=== PATIENT | female | born 1980 | race Caucasian/White ===

== ENCOUNTER 2018-07-29 08:13 | Inpatient (IN) | payer SELFPAY ==
[~2018-07-29] VITALS: Ht 157.5 cm; Wt 46.5 kg
[2018-07-29] MEDS ORDERED: KETOROLAC 30 MG/ML VIAL. IV ONE ×2 (08:30→11:00)
[2018-07-29] MEDS ORDERED: CYCLOBENZAPRINE 10 MG TABLET. PO ONE (08:30)
--- NOTE | 2018-07-29 08:37 | PHYS DOC ---
Past Medical History Past Medical History: No Pertinent History Past Surgical History: Other Additional Past Surgical Histo: jaw reconstruction Alcohol Use: None Drug Use: None Adult General Chief Complaint Chief Complaint: CHEST PAIN HPI HPI Patient is a 37 year old female who presents with complaining of chest pain. Patient complaining of sudden onset of left sided chest pain around 6:30 as a constant and sharp pain with radiation to her left upper back associated with shortness of breath. Patient states the pain getting worse with movement and taking deep breaths and rated her pain 10/10 with activity and 8/10 with rest. Patient denies nausea, palpitations, recent injury, history of chest pain. Patient does not have any medical problem and does not take medication daily basis. Patient is currently a smoker and has family history of coronary artery disease. Review of Systems Review of Systems Constitutional: Denies fever or chills [] Eyes: Denies change in visual acuity, redness, or eye pain [] HENT: Denies nasal congestion or sore throat [] Respiratory: Denies cough or shortness of breath [] Cardiovascular: No additional information not addressed in HPI [] GI: Denies abdominal pain, nausea, vomiting, bloody stools or diarrhea [] : Denies dysuria or hematuria [] Musculoskeletal: Denies back pain or joint pain [] Integument: Denies rash or skin lesions [] Neurologic: Denies headache, focal weakness or sensory changes [] Endocrine: Denies polyuria or polydipsia [] All other systems were reviewed and found to be within normal limits, except as documented in this note. Current Medications Current Medications Current Medications Medications (Trade) Dose Ordered Sig/[facility] Start Time Stop Time Status Last Admin Dose Admin Cyclobenzaprine HCl (Flexeril) 10 mg 1X ONCE 07/29/18 08:30 07/29/18 08:46 DC 07/29/18 08:53 10 MG Fentanyl Citrate (Fentanyl 2ml Vial) 50 mcg 1X ONCE 07/29/18 09:00 07/29/18 09:08 DC 07/29/18 09:15 50 MCG Ketorolac Tromethamine (Toradol 30mg Vial) 30 mg 1X ONCE 07/29/18 08:30 07/29/18 08:46 DC 07/29/18 08:55 30 MG Sodium Chloride 1,000 ml @ 1,000 mls/hr 1X ONCE 07/29/18 09:00 07/29/18 09:59 DC 07/29/18 09:00 1,000 MLS/HR Allergies Allergies Allergies Coded Allergies Type Severity Reaction Last Updated Verified No Known Drug Allergies 07/29/18 No Physical Exam Physical Exam Constitutional: Well developed, well nourished, moderate distress, non-toxic appearance. [] HENT: Normocephalic, atraumatic, oropharynx moist. Eyes: PERRLA, EOMI, conjunctiva normal, no discharge. [] Neck: Normal range of motion, no tenderness, supple, no stridor. [] Cardiovascular:Heart rate regular rhythm, no murmur [] Lungs & Thorax: Decrease of air movement in left lung, no wheezing or rhonchi. Abdomen: Bowel sounds normal, soft, no tenderness, no masses, no pulsatile masses. [] Skin: Warm, dry, no erythema, no rash. [] Back: No tenderness, no CVA tenderness. [] Extremities: No tenderness, no cyanosis, no clubbing, ROM intact, no edema. [] Neurologic: Alert and oriented X 3, normal motor function, normal sensory function, no focal deficits noted. [] Psychologic: Affect normal, judgement normal, mood normal. [] Current Patient Data Vital Signs Vital Signs Date Time Temp Pulse Resp B/P (MAP) Pulse Ox O2 Delivery O2 Flow Rate FiO2 07/29/18 08:21 98.2 90 17 117/70 (86) 94 Room Air 98.2 Lab Values Laboratory Tests Test 07/29/18 08:25 White Blood Count 9.7 x10^3/uL (4.0-11.0) Red Blood Count 5.00 x10^6/uL (3.50-5.40) Hemoglobin 15.3 g/dL (12.0-15.5) Hematocrit 45.0 % (36.0-47.0) Mean Corpuscular Volume 90 fL (79-100) Mean Corpuscular Hemoglobin 31 pg (25-35) Mean Corpuscular Hemoglobin Concent 34 g/dL (31-37) Red Cell Distribution Width 13.5 % (11.5-14.5) Platelet Count 268 x10^3/uL (140-400) Neutrophils (%) (Auto) 54 % (31-73) Lymphocytes (%) (Auto) 33 % (24-48) Monocytes (%) (Auto) 9 % (0-9) Eosinophils (%) (Auto) 3 % (0-3) Basophils (%) (Auto) 1 % (0-3) Neutrophils # (Auto) 5.3 x10^3uL (1.8-7.7) Lymphocytes # (Auto) 3.2 x10^3/uL (1.0-4.8) Monocytes # (Auto) 0.9 x10^3/uL (0.0-1.1) Eosinophils # (Auto) 0.3 x10^3/uL (0.0-0.7) Basophils # (Auto) 0.1 x10^3/uL (0.0-0.2) D-Dimer (Ginger) < 0.27 ug/mlFEU Sodium Level 141 mmol/L (136-145) Potassium Level 3.9 mmol/L (3.5-5.1) Chloride Level 105 mmol/L (98-107) Carbon Dioxide Level 26 mmol/L (21-32) Anion Gap 10 (6-14) Blood Urea Nitrogen 12 mg/dL (7-20) Creatinine 0.7 mg/dL (0.6-1.0) Estimated GFR (Cockcroft-Gault) 93.6 BUN/Creatinine Ratio 17 (6-20) Glucose Level 121 mg/dL (70-99) H Calcium Level 9.0 mg/dL (8.5-10.1) Magnesium Level 2.0 mg/dL (1.8-2.4) Total Bilirubin 0.3 mg/dL (0.2-1.0) Aspartate Amino Transferase (AST) 19 U/L (15-37) Alanine Aminotransferase (ALT) 27 U/L (14-59) Alkaline Phosphatase 115 U/L (46-116) Troponin I Quantitative < 0.017 ng/mL (0.000-0.055) PE-Kou-O-Type Natriuretic Peptide 52 pg/mL (0-124) Total Protein 7.6 g/dL (6.4-8.2) Albumin 4.0 g/dL (3.4-5.0) Albumin/Globulin Ratio 1.1 (1.0-1.7) Lipase 186 U/L (73-393) Laboratory Tests 07/29/18 08:25 Laboratory Tests 07/29/18 08:25 EKG EKG EKG interpreted by me. EKG at 0818 showed normal sinus rhythm at rate of 100, left atrial abnormalities, normal WI and QT intervals worse, no acute ST and T- wave abnormalities. Radiology/Procedures Radiology/Procedures [facility] [address] [place] [address] IMAGING REPORT Signed PATIENT: KATERYNA HUA ACCOUNT: [id number] : 1980 LOCATION: ER AGE: 37 SEX: F EXAM STATUS: PRE ER ORD. PHYSICIAN: RICKY CLEVELAND MD REASON: chest pain PROCEDURE: PORTABLE CHEST 1V Chest radiograph 07/29/2018 8:28 AM INDICATION: Chest pain with cough today COMPARISON: None available TECHNIQUE: Portable upright frontal view of the chest is provided. FINDINGS: The cardiomediastinal silhouette is within normal limits. There is a large left-sided pneumothorax with lobar atelectasis. No pleural effusions. There is no pulmonary vascular congestion. IMPRESSION: Large left-sided pneumothorax without significant mediastinal shift. Correlate with patient's symptoms. In a patient of this age, differential considerations would include ruptured bleb as may be seen with asthmatics, idiopathic pneumothorax, or catamenial pneumothorax. FOR INTERNAL CODING PURPOSES Critical result: Findings discussed with RICKY CLEVELAND at 07/29/2018 8:53 AM. RESULT CODE: (C) Electronically signed by: Felix Temple MD (07/29/2018 8:55 AM) [id number] DICTATED and SIGNED BY: FELIX TEMPLE MD DATE: 07/29/18 0855 [facility] [address] [place], [place] [id number] IMAGING REPORT Signed PATIENT: KATERYNA HUA ACCOUNT: [id number] : 1980 LOCATION: [address] [place] [address] AGE: 37 SEX: F EXAM STATUS: ADM IN ORD. PHYSICIAN: RICKY CLEVELAND MD REASON: post-chest tube insertion PROCEDURE: PORTABLE CHEST 1V Chest radiograph 07/29/2018 9:44 AM INDICATION: Post chest tube insertion COMPARISON: Chest radiograph 07/29/2018 TECHNIQUE: Portable upright frontal view of the chest is provided. FINDINGS: The cardiomediastinal silhouette is within normal limits with resolution of minimal mediastinal shift to the right. Left-sided thoracostomy tube is identified with improved aeration of the left lung. There is persistent lobar atelectasis of the left upper lobe. There is a persistent moderate-sized left apical pneumothorax measuring 7.6 cm in pleural separation. No pleural effusions. No pulmonary vascular congestion. IMPRESSION: Interval placement of left-sided thoracostomy tube with partial resolution of left apical pneumothorax. There is a persistent moderate left apical pneumothorax. There is improved mediastinal shift. Electronically signed by: Felix Temple MD (07/29/2018 10:17 AM) [id number] DICTATED and SIGNED BY: FELIX TEMPLE MD DATE: 07/29/18 1017 Course & Med Decision Making Course & Med Decision Making Pertinent Labs and Imaging studies reviewed. (See chart for details) Evaluation of patient in ER showed 37-year-old female patient with complaining of sudden onset of left-sided chest pain and shortness of breath. Patient had large left-sided spontaneous pneumothorax that improved with insertion of [address] Gonzales accepted admission at 0920. Plan to consult manager medical and surgeon on-call. Dragon Disclaimer Dragon Disclaimer This electronic medical record was generated, in whole or in part, using a voice recognition dictation system. Departure Departure Impression: Primary Impression: Spontaneous pneumothorax Additional Impression: Left-sided chest pain Disposition: ADMITTED INPATIENT (at 090 to) Admitting Physician: Shaina Gonzales Condition: IMPROVED Chest Tube Chest Tube Indication: Left Spontaneous pneumothorax Consent: The patient provided consent for this procedure. Procedure: The patient was placed in an appropriate position. Local anesthesia over the insertion site was was given with 1% lidocaine. An 3 mm incision was made[]. A 8 [place] Cook chest tube was placed and connected to one way valve tube with drainage of air. The tube was sutured in place and the site was covered with an occlusive dressing. All connections were banded. Breath sounds after the procedure were improved]. A chest x-ray was obtained to evaluate placement [X-RAY]. The patient tolerated the procedure well. Complications: None. Problem Qualifiers RICKY CLEVELAND MD Jul 29, 2018 08:37
[2018-07-29 08:39] LABS: BASO # 0.1 x10^3/uL (0.0-0.2); BASO % 1 % (0-3); EOS # 0.3 x10^3/uL (0.0-0.7); EOS % 3 % (0-3); HEMOGLOBIN 15.3 g/dL (12.0-15.5); LYMPH # 3.2 x10^3/uL (1.0-4.8); LYMPH % 33 % (24-48); MEAN CORPUSCULAR HEMOGLOBIN 31 pg (25-35); MEAN CORPUSCULAR HGB CONC 34 g/dL (31-37); MEAN CORPUSCULAR VOLUME 90 fL (79-100); MONO # 0.9 x10^3/uL (0.0-1.1); MONO % 9 % (0-9); NEUT # 5.3 x10^3uL (1.8-7.7); NEUT % 54 % (31-73); PLATELET COUNT 268 x10^3/uL (140-400); RED CELL DISTRIBUTION WIDTH 13.5 % (11.5-14.5); WHITE BLOOD COUNT 9.7 x10^3/uL (4.0-11.0)
[2018-07-29 08:51] LABS: CREATININE 0.7 mg/dL (0.6-1.0); GFR 93.6; POTASSIUM 3.9 mmol/L (3.5-5.1)
[2018-07-29 08:57] LABS: ALBUMIN/GLOBULIN RATIO 1.1 (1.0-1.7); TOTAL BILIRUBIN 0.3 mg/dL (0.2-1.0); TOTAL PROTEIN 7.6 g/dL (6.4-8.2)
--- NOTE | 2018-07-29 08:59 | RAD ---
Chest radiograph 07/29/2018 8:28 AM INDICATION: Chest pain with cough today COMPARISON: None available TECHNIQUE: Portable upright frontal view of the chest is provided. FINDINGS: The cardiomediastinal silhouette is within normal limits. There is a large left-sided pneumothorax with lobar atelectasis. No pleural effusions. There is no pulmonary vascular congestion. IMPRESSION: Large left-sided pneumothorax without significant mediastinal shift. Correlate with patient's symptoms. In a patient of this age, differential considerations would include ruptured bleb as may be seen with asthmatics, idiopathic pneumothorax, or catamenial pneumothorax. FOR INTERNAL CODING PURPOSES Critical result: Findings discussed with RICKY CLEVELAND at 07/29/2018 8:53 AM. RESULT CODE: (C) Electronically signed by: Yanique Michael MD (07/29/2018 8:55 AM) [id number]
[2018-07-29] MEDS ORDERED: fentaNYL PF VIAL 100 MCG/2 ML VIAL IV ONE ×3 (09:00→13:15)
[2018-07-29] MEDS ORDERED: IV NORMAL SALINE 1000ML BAG 1,000 ML IV ONE (09:00)
--- NOTE | 2018-07-29 10:20 | RAD ---
Chest radiograph 07/29/2018 9:44 AM INDICATION: Post chest tube insertion COMPARISON: Chest radiograph 07/29/2018 TECHNIQUE: Portable upright frontal view of the chest is provided. FINDINGS: The cardiomediastinal silhouette is within normal limits with resolution of minimal mediastinal shift to the right. Left-sided thoracostomy tube is identified with improved aeration of the left lung. There is persistent lobar atelectasis of the left upper lobe. There is a persistent moderate-sized left apical pneumothorax measuring 7.6 cm in pleural separation. No pleural effusions. No pulmonary vascular congestion. IMPRESSION: Interval placement of left-sided thoracostomy tube with partial resolution of left apical pneumothorax. There is a persistent moderate left apical pneumothorax. There is improved mediastinal shift. Electronically signed by: Yanique Michael MD (07/29/2018 10:17 AM) [id number]
--- NOTE | 2018-07-29 10:40 | PDOC2 ---
SANYA VERAS BINDING CUTTER 07/29/18 1040: CONSULT Date of Consult Date of Consult DATE: 07/29/18 TIME: 10:35 Reason for Consult Reason for Consult: spontaneous pneumothorax Referring Physician Referring Physician: ER Identification/Chief Complaint Chief Complaint chest pain, SOA Source Source: Chart review, Patient History of Present Illness Reason for Visit: Acute onset chest pain, trouble breathing. The pain worsened, she was unable to take any deep breaths. She denies any injury or trauma. Patient seen in ER, has improved since chest tube placement Past Medical History Past Medical History no pertinent hx Past Surgical History Past Surgical History: Other (jaw) Family History Family History: Other (noncontributory to current illness ) Social History <1 pack per day ALCOHOL: occassional Drugs: None Lives: Alone Current Problem List Problem List Problems Medical Problems: (1) Left-sided chest pain Status: Acute (2) Spontaneous pneumothorax Status: Acute Current Medications Current Medications Current Medications Ketorolac Tromethamine (Toradol 30mg Vial) 30 mg 1X ONCE IV Last administered on 07/29/18at 08:55; Start 07/29/18 at 08:30; Stop 07/29/18 at 08:46; Status DC Cyclobenzaprine HCl (Flexeril) 10 mg 1X ONCE PO Last administered on 07/29/18at 08:53; Start 07/29/18 at 08:30; Stop 07/29/18 at 08:46; Status DC Fentanyl Citrate (Fentanyl 2ml Vial) 50 mcg 1X ONCE IV Last administered on 07/29/18at 09:15; Start 07/29/18 at 09:00; Stop 07/29/18 at 09:08; Status DC Sodium Chloride 1,000 ml @ 1,000 mls/hr 1X ONCE IV Last administered on at 09:00; Start 07/29/18 at 09:00; Stop 07/29/18 at 09:59; Status DC Fentanyl Citrate (Fentanyl 2ml Vial) 50 mcg 1X ONCE IV Last administered on 07/29/18at 10:14; Start 07/29/18 at 10:00; Stop 07/29/18 at 10:06; Status DC Allergies Allergies: Coded Allergies: No Known Drug Allergies (Unverified , 07/29/18) ROS General: No: Chills, Other (fevers) PSYCHOLOGICAL ROS: No: Anxiety, Depression Eyes: No Blurry vision, No Double vision HEENT: No: Heacaches, Sore Throat Hematological and Lymphatic: No: Bleeding Problems, Blood Clots Respiratory: YES: Other (see hpi) Cardiovascular: yes Chest Pain; No Palpitations Gastrointestinal: No Nausea, No Vomiting Genitourinary: No Dysuria, No Hematuria Musculoskeletal: No Joint Pain, No Muscle Pain Neurological: No Confusion, No Impaired Coord/balance Skin: No Pruritus, No Rash Physical Exam General: Alert, Oriented X3, Cooperative, No acute distress HEENT: PERRLA, Mucous membr. moist/pink Lungs: Other (CT in place to left chest) Abdomen: Normal bowel sounds, Soft, No tenderness Extremities: No clubbing, No cyanosis Skin: No rashes, No breakdown Neuro: Normal gait, Normal speech Psych/Mental Status: Mental status NL, Mood NL MUSCULOSKELETAL: No deformity, No swelling Vitals VITALS Vital Signs Date Time Temp Pulse Resp B/P (MAP) Pulse Ox O2 Delivery O2 Flow Rate FiO2 07/29/18 10:21 71 12 123/81 (95) 100 Nasal Cannula 2.0 07/29/18 08:21 98.2 98.2 Labs Labs Laboratory Tests Test 07/29/18 08:25 White Blood Count 9.7 x10^3/uL (4.0-11.0) Red Blood Count 5.00 x10^6/uL (3.50-5.40) Hemoglobin 15.3 g/dL (12.0-15.5) Hematocrit 45.0 % (36.0-47.0) Mean Corpuscular Volume 90 fL (79-100) Mean Corpuscular Hemoglobin 31 pg (25-35) Mean Corpuscular Hemoglobin Concent 34 g/dL (31-37) Red Cell Distribution Width 13.5 % (11.5-14.5) Platelet Count 268 x10^3/uL (140-400) Neutrophils (%) (Auto) 54 % (31-73) Lymphocytes (%) (Auto) 33 % (24-48) Monocytes (%) (Auto) 9 % (0-9) Eosinophils (%) (Auto) 3 % (0-3) Basophils (%) (Auto) 1 % (0-3) Neutrophils # (Auto) 5.3 x10^3uL (1.8-7.7) Lymphocytes # (Auto) 3.2 x10^3/uL (1.0-4.8) Monocytes # (Auto) 0.9 x10^3/uL (0.0-1.1) Eosinophils # (Auto) 0.3 x10^3/uL (0.0-0.7) Basophils # (Auto) 0.1 x10^3/uL (0.0-0.2) D-Dimer (Ginger) < 0.27 ug/mlFEU Sodium Level 141 mmol/L (136-145) Potassium Level 3.9 mmol/L (3.5-5.1) Chloride Level 105 mmol/L (98-107) Carbon Dioxide Level 26 mmol/L (21-32) Anion Gap 10 (6-14) Blood Urea Nitrogen 12 mg/dL (7-20) Creatinine 0.7 mg/dL (0.6-1.0) Estimated GFR (Cockcroft-Gault) 93.6 BUN/Creatinine Ratio 17 (6-20) Glucose Level 121 mg/dL (70-99) Calcium Level 9.0 mg/dL (8.5-10.1) Magnesium Level 2.0 mg/dL (1.8-2.4) Total Bilirubin 0.3 mg/dL (0.2-1.0) Aspartate Amino Transf (AST/SGOT) 19 U/L (15-37) Alanine Aminotransferase (ALT/SGPT) 27 U/L (14-59) Alkaline Phosphatase 115 U/L (46-116) Troponin I Quantitative < 0.017 ng/mL (0.000-0.055) NO-Hbf-K-Type Natriuretic Peptide 52 pg/mL (0-124) Total Protein 7.6 g/dL (6.4-8.2) Albumin 4.0 g/dL (3.4-5.0) Albumin/Globulin Ratio 1.1 (1.0-1.7) Lipase 186 U/L (73-393) Laboratory Tests Test 07/29/18 08:25 White Blood Count 9.7 x10^3/uL (4.0-11.0) Red Blood Count 5.00 x10^6/uL (3.50-5.40) Hemoglobin 15.3 g/dL (12.0-15.5) Hematocrit 45.0 % (36.0-47.0) Mean Corpuscular Volume 90 fL (79-100) Mean Corpuscular Hemoglobin 31 pg (25-35) Mean Corpuscular Hemoglobin Concent 34 g/dL (31-37) Red Cell Distribution Width 13.5 % (11.5-14.5) Platelet Count 268 x10^3/uL (140-400) Neutrophils (%) (Auto) 54 % (31-73) Lymphocytes (%) (Auto) 33 % (24-48) Monocytes (%) (Auto) 9 % (0-9) Eosinophils (%) (Auto) 3 % (0-3) Basophils (%) (Auto) 1 % (0-3) Neutrophils # (Auto) 5.3 x10^3uL (1.8-7.7) Lymphocytes # (Auto) 3.2 x10^3/uL (1.0-4.8) Monocytes # (Auto) 0.9 x10^3/uL (0.0-1.1) Eosinophils # (Auto) 0.3 x10^3/uL (0.0-0.7) Basophils # (Auto) 0.1 x10^3/uL (0.0-0.2) D-Dimer (Ginger) < 0.27 ug/mlFEU Sodium Level 141 mmol/L (136-145) Potassium Level 3.9 mmol/L (3.5-5.1) Chloride Level 105 mmol/L (98-107) Carbon Dioxide Level 26 mmol/L (21-32) Anion Gap 10 (6-14) Blood Urea Nitrogen 12 mg/dL (7-20) Creatinine 0.7 mg/dL (0.6-1.0) Estimated GFR (Cockcroft-Gault) 93.6 BUN/Creatinine Ratio 17 (6-20) Glucose Level 121 mg/dL (70-99) Calcium Level 9.0 mg/dL (8.5-10.1) Magnesium Level 2.0 mg/dL (1.8-2.4) Total Bilirubin 0.3 mg/dL (0.2-1.0) Aspartate Amino Transf (AST/SGOT) 19 U/L (15-37) Alanine Aminotransferase (ALT/SGPT) 27 U/L (14-59) Alkaline Phosphatase 115 U/L (46-116) Troponin I Quantitative < 0.017 ng/mL (0.000-0.055) DF-Bdx-F-Type Natriuretic Peptide 52 pg/mL (0-124) Total Protein 7.6 g/dL (6.4-8.2) Albumin 4.0 g/dL (3.4-5.0) Albumin/Globulin Ratio 1.1 (1.0-1.7) Lipase 186 U/L (73-393) Assessment/Plan Assessment/Plan Spontaneous pneumothorax CT in place Pulm consult no surgical plans GUILLERMINA GARAY MD 07/29/18 1721: CONSULT Assessment/Plan Assessment/Plan went by to see pt she was in the bathroom chart reviewed no general surgical needs will sign off please call if needed Thanks SANYA VERAS BINDING CUTTER Jul 29, 2018 10:40 GUILLERMINA GARAY MD Jul 29, 2018 17:21
[2018-07-29 10:45] VITALS: BP 112/69
--- NOTE | 2018-07-29 11:08 | EKG ---
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
--- NOTE | 2018-07-29 11:08 | PDOC1 ---
History and Physical Date of Admission Date of Admission DATE: 07/29/18 TIME: 11:03 Identification/Chief Complaint Chief Complaint left sided CP Source Source: Caregiver, Chart review, Patient History of Present Illness History of Present Illness Today, acute onset left-sided chest pain, pleuritic. NO diaphoresis or pre syncopal sxs. Smoker half a pack a day. No home meds to reconcile, not known COPD,. previously known healthy. No PCP. Spontaneous pneumothorax on chest x- ray got a chest tube at ER. Admitted henceforth Past Medical History Cardiovascular: No pertinent hx Pulmonary: No pertinent hx GI: No pertinent hx Heme/Onc: No pertinent hx Hepatobiliary: No pertinent hx Psych: No pertinent hx Rheumatologic: No pertinent hx Infectious disease: No pertinent hx ENT: No pertinent hx Past Surgical History Past Surgical History: Other (jaw) Family History Family History: Other (noncontributory to current illness ) Social History Smoke: <1 pack per day ALCOHOL: occassional Drugs: None Current Problem List Problem List Problems Medical Problems: (1) Left-sided chest pain Status: Acute (2) Spontaneous pneumothorax Status: Acute Current Medications Current Medications Current Medications Ketorolac Tromethamine (Toradol 30mg Vial) 30 mg 1X ONCE IV Last administered on 07/29/18at 08:55; Start 07/29/18 at 08:30; Stop 07/29/18 at 08:46; Status DC Cyclobenzaprine HCl (Flexeril) 10 mg 1X ONCE PO Last administered on 07/29/18at 08:53; Start 07/29/18 at 08:30; Stop 07/29/18 at 08:46; Status DC Fentanyl Citrate (Fentanyl 2ml Vial) 50 mcg 1X ONCE IV Last administered on 07/29/18at 09:15; Start 07/29/18 at 09:00; Stop 07/29/18 at 09:08; Status DC Sodium Chloride 1,000 ml @ 1,000 mls/hr 1X ONCE IV Last administered on at 09:00; Start 07/29/18 at 09:00; Stop 07/29/18 at 09:59; Status DC Fentanyl Citrate (Fentanyl 2ml Vial) 50 mcg 1X ONCE IV Last administered on 07/29/18at 10:14; Start 07/29/18 at 10:00; Stop 07/29/18 at 10:06; Status DC Ketorolac Tromethamine (Toradol 30mg Vial) 30 mg 1X ONCE IV ; Start 07/29/18 at 11:00; Stop 07/29/18 at 11:01; Status UNV Ketorolac Tromethamine (Toradol 15mg Vial) 15 mg PRN Q6HRS PRN IV PAIN; Start 07/29/18 at 11:00; Stop 08/03/18 at 10:59; Status UNV Oxycodone/ Acetaminophen (Percocet 5/325) 1 tab PRN Q4HRS PRN PO PAIN; Start at 11:00; Status UNV Nicotine (Nicoderm Cq 21mg) 1 patch PRN DAILY PRN TD SMOKING CESSATION; Start 07/29/18 at 11:00; Status UNV Morphine Sulfate (Morphine Sulfate) 2 mg PRN Q2HR PRN IV PAIN; Start 07/29/18 at 11:00; Status UNV Allergies Allergies: Coded Allergies: No Known Drug Allergies (Unverified , 07/29/18) ROS Review of System left Sided pleuritic chest pain otherwise the rest of ROS 14 point negative Physical Exam General: Alert, Oriented X3, Cooperative, No acute distress HEENT: Atraumatic, PERRLA Lungs: Normal air movement, Other (equal air entry, tympanitic to percussion on the left side, symmetrical chest expansion) Heart: S1S2, RRR, no thrills, no rubs, no gallops, murmurs Cardiovascular: S1, S2 Abdomen: Normal bowel sounds, Soft, No tenderness, No hepatosplenomegaly, No masses Rectal Exam: not examined PELVIC: Nml ext genitalia Extremities: No clubbing, No cyanosis, No edema, Normal pulses, No tenderness/ swelling Skin: No rashes, No breakdown, No significant lesion Neuro: Normal gait, Normal speech, Strength at 5/5 X4 ext, Normal tone, Sensation intact, Cranial nerves 3-12 NL, Reflexes 2+ Psych/Mental Status: Mental status NL, Mood NL Vitals Vitals Vital Signs Date Time Temp Pulse Resp B/P (MAP) Pulse Ox O2 Delivery O2 Flow Rate FiO2 07/29/18 10:21 71 12 123/81 (95) 100 Nasal Cannula 2.0 07/29/18 08:21 98.2 98.2 Labs Labs Laboratory Tests Test 07/29/18 08:25 White Blood Count 9.7 x10^3/uL (4.0-11.0) Red Blood Count 5.00 x10^6/uL (3.50-5.40) Hemoglobin 15.3 g/dL (12.0-15.5) Hematocrit 45.0 % (36.0-47.0) Mean Corpuscular Volume 90 fL (79-100) Mean Corpuscular Hemoglobin 31 pg (25-35) Mean Corpuscular Hemoglobin Concent 34 g/dL (31-37) Red Cell Distribution Width 13.5 % (11.5-14.5) Platelet Count 268 x10^3/uL (140-400) Neutrophils (%) (Auto) 54 % (31-73) Lymphocytes (%) (Auto) 33 % (24-48) Monocytes (%) (Auto) 9 % (0-9) Eosinophils (%) (Auto) 3 % (0-3) Basophils (%) (Auto) 1 % (0-3) Neutrophils # (Auto) 5.3 x10^3uL (1.8-7.7) Lymphocytes # (Auto) 3.2 x10^3/uL (1.0-4.8) Monocytes # (Auto) 0.9 x10^3/uL (0.0-1.1) Eosinophils # (Auto) 0.3 x10^3/uL (0.0-0.7) Basophils # (Auto) 0.1 x10^3/uL (0.0-0.2) D-Dimer (Ginger) < 0.27 ug/mlFEU Sodium Level 141 mmol/L (136-145) Potassium Level 3.9 mmol/L (3.5-5.1) Chloride Level 105 mmol/L (98-107) Carbon Dioxide Level 26 mmol/L (21-32) Anion Gap 10 (6-14) Blood Urea Nitrogen 12 mg/dL (7-20) Creatinine 0.7 mg/dL (0.6-1.0) Estimated GFR (Cockcroft-Gault) 93.6 BUN/Creatinine Ratio 17 (6-20) Glucose Level 121 mg/dL (70-99) Calcium Level 9.0 mg/dL (8.5-10.1) Magnesium Level 2.0 mg/dL (1.8-2.4) Total Bilirubin 0.3 mg/dL (0.2-1.0) Aspartate Amino Transf (AST/SGOT) 19 U/L (15-37) Alanine Aminotransferase (ALT/SGPT) 27 U/L (14-59) Alkaline Phosphatase 115 U/L (46-116) Troponin I Quantitative < 0.017 ng/mL (0.000-0.055) LW-Eaf-A-Type Natriuretic Peptide 52 pg/mL (0-124) Total Protein 7.6 g/dL (6.4-8.2) Albumin 4.0 g/dL (3.4-5.0) Albumin/Globulin Ratio 1.1 (1.0-1.7) Lipase 186 U/L (73-393) Laboratory Tests Test 07/29/18 08:25 White Blood Count 9.7 x10^3/uL (4.0-11.0) Red Blood Count 5.00 x10^6/uL (3.50-5.40) Hemoglobin 15.3 g/dL (12.0-15.5) Hematocrit 45.0 % (36.0-47.0) Mean Corpuscular Volume 90 fL (79-100) Mean Corpuscular Hemoglobin 31 pg (25-35) Mean Corpuscular Hemoglobin Concent 34 g/dL (31-37) Red Cell Distribution Width 13.5 % (11.5-14.5) Platelet Count 268 x10^3/uL (140-400) Neutrophils (%) (Auto) 54 % (31-73) Lymphocytes (%) (Auto) 33 % (24-48) Monocytes (%) (Auto) 9 % (0-9) Eosinophils (%) (Auto) 3 % (0-3) Basophils (%) (Auto) 1 % (0-3) Neutrophils # (Auto) 5.3 x10^3uL (1.8-7.7) Lymphocytes # (Auto) 3.2 x10^3/uL (1.0-4.8) Monocytes # (Auto) 0.9 x10^3/uL (0.0-1.1) Eosinophils # (Auto) 0.3 x10^3/uL (0.0-0.7) Basophils # (Auto) 0.1 x10^3/uL (0.0-0.2) D-Dimer (Ginger) < 0.27 ug/mlFEU Sodium Level 141 mmol/L (136-145) Potassium Level 3.9 mmol/L (3.5-5.1) Chloride Level 105 mmol/L (98-107) Carbon Dioxide Level 26 mmol/L (21-32) Anion Gap 10 (6-14) Blood Urea Nitrogen 12 mg/dL (7-20) Creatinine 0.7 mg/dL (0.6-1.0) Estimated GFR (Cockcroft-Gault) 93.6 BUN/Creatinine Ratio 17 (6-20) Glucose Level 121 mg/dL (70-99) Calcium Level 9.0 mg/dL (8.5-10.1) Magnesium Level 2.0 mg/dL (1.8-2.4) Total Bilirubin 0.3 mg/dL (0.2-1.0) Aspartate Amino Transf (AST/SGOT) 19 U/L (15-37) Alanine Aminotransferase (ALT/SGPT) 27 U/L (14-59) Alkaline Phosphatase 115 U/L (46-116) Troponin I Quantitative < 0.017 ng/mL (0.000-0.055) YP-Shn-U-Type Natriuretic Peptide 52 pg/mL (0-124) Total Protein 7.6 g/dL (6.4-8.2) Albumin 4.0 g/dL (3.4-5.0) Albumin/Globulin Ratio 1.1 (1.0-1.7) Lipase 186 U/L (73-393) VTE Prophylaxis Ordered VTE Prophylaxis Devices: Yes VTE Pharmacological Prophylaxi: Yes Assessment/Plan Assessment/Plan left apical pneumothorax with mediastinal shift-improved with chest tube Spont Pneumovax Smoker, half pack a day Plan: pain control Pulmonary consulted chest X-ray again tomorrow No home reconciled Regular diet okay Brenden patch Counselled on smoking < 30 mins 1:1 Discussed with RN at bedside DANNY BARRY MD Jul 29, 2018 11:08
[2018-07-29] MEDS ORDERED: LABETALOL 20 MG/4 ML DISP.SYRIN. IVP PRN (11:15)
[2018-07-29] MEDS: oxyCODONE/APAP 5/325 1 TAB TABLET PO PRN ×2 (11:29→20:47)
[2018-07-29] MEDS: MORPHINE SULFATE 2 MG/ML VIAL. IV PRN (11:29)
--- NOTE | 2018-07-29 11:58 | RAD ---
Single view of the chest. 07/29/2018 11:32 AM Indication: PNEUMOTHORAX Comparison: Chest x-ray, earlier today Findings: There is a persistent moderate to large left pneumothorax. Small caliber thoracostomy tube remains in place. No evidence of effusion is seen. Diffuse interstitial coarsening appears to be present. Heart size is normal. IMPRESSION: Small caliber left thoracostomy tube in place similar persistent moderate to large left pneumothorax Electronically signed by: Doni Rivas MD (07/29/2018 11:55 AM) [id number]
--- NOTE | 2018-07-29 12:10 | CONS ---
DATE OF CONSULTATION: 07/29/2018 ATTENDING PHYSICIAN: Dr. Gonzales. REASON FOR CONSULTATION: Spontaneous left pneumothorax. HISTORY OF PRESENT ILLNESS: The patient is a 37-year-old who has been a smoker, half pack per day. She presented to the hospital with sudden onset of left-sided chest pain and some shortness of breath. She was seen in the Emergency Room where a large pneumothorax was seen on the left side. She underwent smaller chest tube placement with Heimlich valve. The chest x-ray shows improved in left lung expansion, but it was still showing 30% pneumothorax. The patient states this is the first time ever that she had the pneumothorax. She does not have any history of substance abuse. She was not doing any exertion. I have been asked to see her for further evaluation. PAST MEDICAL HISTORY: Significant for history of smoking. No other pertinent history. PAST SURGICAL HISTORY: None. REVIEW OF SYSTEMS: As discussed in my history of present illness, otherwise noncontributory. SOCIAL HISTORY: Smoker, less than 1 pack per day. MEDICATIONS: Reviewed as listed in the MRAD. PHYSICAL EXAMINATION: VITAL SIGNS: Reviewed. Stable. Pulse ox 100% on 2 liters. NECK: Supple. LUNGS: Diminished breath sounds left lung. CARDIOVASCULAR: Regular rate. ABDOMEN: Soft, nontender. EXTREMITIES: With no pitting edema. LABORATORY DATA: Reviewed. Sodium 141, potassium 3.9. White cell count 9.7, hemoglobin 15.3. D-dimer less than 0.27. IMPRESSION: 1. Spontaneous left-sided pneumothorax in a patient who was a smoker and that is the likely risk factor. One should rule out alpha-1 antitrypsin deficiency as an outpatient. The lung has expanded, but still 30-35% pneumothorax still present. 3. History of tobaccoism. RECOMMENDATIONS: 1. Would consult IR to exchange current tiny chest tube to a 12-Haitian chest tube and we will attached to Pleur-Evac. 2. Follow daily chest x-rays. 3. May do CT chest to assess for any blebs. 4. Outpatient alpha 1 antitrypsin level. Not available in-house. 5. P.r.n. bronchodilators. 6. Pain control. 7. Discussed with RN. ALESIA HERNANDEZ MD DR: VITOR/eboni JOB#: [id number] / [id number]
[2018-07-29] MEDS ORDERED: MIDAZOLAM HCL/PF 2 MG/2 ML VIAL. ONE (12:36)
[2018-07-29] MEDS ORDERED: FLUMAZENIL 0.5 MG/5 ML VIAL. IV ONE (12:37)
[2018-07-29] MEDS ORDERED: NALOXONE 0.4 MG/ML VIAL. ONE (12:37)
[2018-07-29] MEDS ORDERED: fentaNYL PF VIAL 100 MCG/2 ML VIAL ONE (12:37)
[2018-07-29] MEDS ORDERED: LIDOCAINE WITH 8.4% SOD BICARB 3 ML DISP.SYRIN. ONE (12:39)
--- NOTE | 2018-07-29 12:41 | NUR ---
SS following for discharge planning. SS reviewed pt chart. Pt is from home and is currently requiring oxygen. No discharge needs noted at this time. SS will continue to follow for pending discharge needs.
[2018-07-29 13:11] VITALS: BP 122/73
[2018-07-29 13:14] VITALS: BP 115/77
[2018-07-29] MEDS ORDERED: LIDOCAINE WITH 8.4% SOD BICARB 3 ML DISP.SYRIN. IJ ONE (13:30)
[2018-07-29 15:26] VITALS: BP 100/65
--- NOTE | 2018-07-29 15:59 | RAD ---
Single view of the chest. 07/29/2018 3:13 PM Indication: CHEST TUBE Comparison: Chest radiograph, earlier today Findings: New left thoracostomy tube in place. Significant reduction, but persistent small left apical pneumothorax. Diffuse interstitial changes appear to be present. Right lung is clear. Heart size is normal. Bony thorax is intact. IMPRESSION: New left thoracostomy tube with decreased size of left pneumothorax. Small persistent apical pneumothorax noted. Electronically signed by: Doni Rivas MD (07/29/2018 3:56 PM) [id number]
[2018-07-29] MEDS ORDERED: IBUP-1027 PO (19:29)
[2018-07-29 19:40] VITALS: BP 93/53
[2018-07-29 23:00] VITALS: BP 99/53
[2018-07-29] MEDS: KETOROLAC 15 MG/ML VIAL. IV PRN (23:06)
[2018-07-29] MEDS: NICOTINE 21MG PATCH. TD PRN (23:53)
[2018-07-30] VITALS (7 sets, daily range): BP systolic 84–121; BP diastolic 45–73
[2018-07-30] MEDS: oxyCODONE/APAP 5/325 1 TAB TABLET PO PRN ×4 (02:33→20:06)
[2018-07-30] MEDS: KETOROLAC 15 MG/ML VIAL. IV PRN ×3 (05:22→22:35)
--- NOTE | 2018-07-30 08:20 | RAD ---
Chest radiograph 07/30/2018 9:00 AM INDICATION: Pneumothorax COMPARISON: July 29, 2018 TECHNIQUE: Portable upright frontal view of the chest is provided. FINDINGS: The cardiomediastinal silhouette is within normal limits. Thoracostomy tube is identified in the left upper lung. There is minimal residual left apical pneumothorax measuring 10 mm in pleural separation. There are no pleural effusions. There is no pulmonary vascular congestion. The lungs are clear. No significant osseous abnormality is identified. IMPRESSION: Left upper lung thoracostomy tube is in place, repositioning. There is a persistent tiny left apical pneumothorax measuring 10 mm in pleural separation, improved from prior examination. Electronically signed by: Yanique Michael MD (07/30/2018 8:17 AM) [id number]
--- NOTE | 2018-07-30 08:31 | PDOC ---
PULMONARY PROGRESS NOTES Vitals Vital Signs Date Time Temp Pulse Resp B/P (MAP) Pulse Ox O2 Delivery O2 Flow Rate FiO2 07/30/18 07:38 Room Air 07/30/18 07:00 97.9 74 18 84/45 (58) 99 97.9 07/29/18 20:47 2.0 Cardiovascular: S1, S2 Labs Laboratory Tests Test 07/29/18 08:25 White Blood Count 9.7 x10^3/uL (4.0-11.0) Red Blood Count 5.00 x10^6/uL (3.50-5.40) Hemoglobin 15.3 g/dL (12.0-15.5) Hematocrit 45.0 % (36.0-47.0) Mean Corpuscular Volume 90 fL (79-100) Mean Corpuscular Hemoglobin 31 pg (25-35) Mean Corpuscular Hemoglobin Concent 34 g/dL (31-37) Red Cell Distribution Width 13.5 % (11.5-14.5) Platelet Count 268 x10^3/uL (140-400) Neutrophils (%) (Auto) 54 % (31-73) Lymphocytes (%) (Auto) 33 % (24-48) Monocytes (%) (Auto) 9 % (0-9) Eosinophils (%) (Auto) 3 % (0-3) Basophils (%) (Auto) 1 % (0-3) Neutrophils # (Auto) 5.3 x10^3uL (1.8-7.7) Lymphocytes # (Auto) 3.2 x10^3/uL (1.0-4.8) Monocytes # (Auto) 0.9 x10^3/uL (0.0-1.1) Eosinophils # (Auto) 0.3 x10^3/uL (0.0-0.7) Basophils # (Auto) 0.1 x10^3/uL (0.0-0.2) D-Dimer (Ginger) < 0.27 ug/mlFEU Sodium Level 141 mmol/L (136-145) Potassium Level 3.9 mmol/L (3.5-5.1) Chloride Level 105 mmol/L (98-107) Carbon Dioxide Level 26 mmol/L (21-32) Anion Gap 10 (6-14) Blood Urea Nitrogen 12 mg/dL (7-20) Creatinine 0.7 mg/dL (0.6-1.0) Estimated GFR (Cockcroft-Gault) 93.6 BUN/Creatinine Ratio 17 (6-20) Glucose Level 121 mg/dL (70-99) Calcium Level 9.0 mg/dL (8.5-10.1) Magnesium Level 2.0 mg/dL (1.8-2.4) Total Bilirubin 0.3 mg/dL (0.2-1.0) Aspartate Amino Transf (AST/SGOT) 19 U/L (15-37) Alanine Aminotransferase (ALT/SGPT) 27 U/L (14-59) Alkaline Phosphatase 115 U/L (46-116) Troponin I Quantitative < 0.017 ng/mL (0.000-0.055) RF-Nyi-B-Type Natriuretic Peptide 52 pg/mL (0-124) Total Protein 7.6 g/dL (6.4-8.2) Albumin 4.0 g/dL (3.4-5.0) Albumin/Globulin Ratio 1.1 (1.0-1.7) Lipase 186 U/L (73-393) Medications Active Scripts Medications Dose Route/Sig Max Daily Dose Days Date Category Ibuprofen 400 Mg Tablet 400 Mg PO PRN Q6HRS PRN 07/29/18 Reported KYRA COTTRELL MD Jul 30, 2018 08:31
[2018-07-30] MEDS: MORPHINE SULFATE 2 MG/ML VIAL. IV PRN (08:42)
--- NOTE | 2018-07-30 12:07 | PDOC ---
PROGRESS NOTES Chief Complaint Chief Complaint Spontaneous pneumothorax History of tobacco abuse Counseling done Chest discomfort as a consequence of pneumothorax Plan: Continue current care chest tube Pain management Further recommendations based on clinical course History of Present Illness History of Present Illness Patient complaining of discomfort over the affected side. Patient denies cough no sputum production no fever or chills were reported. Plan of care is going detail and all of her concerns were addressed to the best of my abilities Vitals Vitals Vital Signs Date Time Temp Pulse Resp B/P (MAP) Pulse Ox O2 Delivery O2 Flow Rate FiO2 07/30/18 11:07 20 07/30/18 10:48 97.8 78 91/57 (68) 96 Room Air 97.8 07/29/18 20:47 2.0 Physical Exam General: Alert, Oriented X3, Cooperative, No acute distress Abdomen: Normal bowel sounds, Soft, No tenderness, No hepatosplenomegaly, No masses Extremities: No clubbing, No cyanosis, No edema, Normal pulses, No tenderness/ swelling Skin: No rashes, No breakdown, No significant lesion Assessment and Plan Assessmemt and Plan Problems Medical Problems: (1) Left-sided chest pain Status: Acute (2) Spontaneous pneumothorax Status: Acute Comment Review of Relevant I have reviewed the following items monik (where applicable) has been applied. Labs Laboratory Tests Test 07/29/18 08:25 White Blood Count 9.7 x10^3/uL (4.0-11.0) Red Blood Count 5.00 x10^6/uL (3.50-5.40) Hemoglobin 15.3 g/dL (12.0-15.5) Hematocrit 45.0 % (36.0-47.0) Mean Corpuscular Volume 90 fL (79-100) Mean Corpuscular Hemoglobin 31 pg (25-35) Mean Corpuscular Hemoglobin Concent 34 g/dL (31-37) Red Cell Distribution Width 13.5 % (11.5-14.5) Platelet Count 268 x10^3/uL (140-400) Neutrophils (%) (Auto) 54 % (31-73) Lymphocytes (%) (Auto) 33 % (24-48) Monocytes (%) (Auto) 9 % (0-9) Eosinophils (%) (Auto) 3 % (0-3) Basophils (%) (Auto) 1 % (0-3) Neutrophils # (Auto) 5.3 x10^3uL (1.8-7.7) Lymphocytes # (Auto) 3.2 x10^3/uL (1.0-4.8) Monocytes # (Auto) 0.9 x10^3/uL (0.0-1.1) Eosinophils # (Auto) 0.3 x10^3/uL (0.0-0.7) Basophils # (Auto) 0.1 x10^3/uL (0.0-0.2) D-Dimer (Ginger) < 0.27 ug/mlFEU Sodium Level 141 mmol/L (136-145) Potassium Level 3.9 mmol/L (3.5-5.1) Chloride Level 105 mmol/L (98-107) Carbon Dioxide Level 26 mmol/L (21-32) Anion Gap 10 (6-14) Blood Urea Nitrogen 12 mg/dL (7-20) Creatinine 0.7 mg/dL (0.6-1.0) Estimated GFR (Cockcroft-Gault) 93.6 BUN/Creatinine Ratio 17 (6-20) Glucose Level 121 mg/dL (70-99) Calcium Level 9.0 mg/dL (8.5-10.1) Magnesium Level 2.0 mg/dL (1.8-2.4) Total Bilirubin 0.3 mg/dL (0.2-1.0) Aspartate Amino Transf (AST/SGOT) 19 U/L (15-37) Alanine Aminotransferase (ALT/SGPT) 27 U/L (14-59) Alkaline Phosphatase 115 U/L (46-116) Troponin I Quantitative < 0.017 ng/mL (0.000-0.055) NC-Lsy-U-Type Natriuretic Peptide 52 pg/mL (0-124) Total Protein 7.6 g/dL (6.4-8.2) Albumin 4.0 g/dL (3.4-5.0) Albumin/Globulin Ratio 1.1 (1.0-1.7) Lipase 186 U/L (73-393) Medications Current Medications Ketorolac Tromethamine (Toradol 30mg Vial) 30 mg 1X ONCE IV Last administered on 07/29/18at 08:55; Start 07/29/18 at 08:30; Stop 07/29/18 at 08:46; Status DC Cyclobenzaprine HCl (Flexeril) 10 mg 1X ONCE PO Last administered on 07/29/18 08:53; Start 07/29/18 at 08:30; Stop 07/29/18 at 08:46; Status DC Fentanyl Citrate (Fentanyl 2ml Vial) 50 mcg 1X ONCE IV Last administered on 09:15; Start 07/29/18 at 09:00; Stop 07/29/18 at 09:08; Status DC Sodium Chloride 1,000 ml @ 1,000 mls/hr 1X ONCE IV Last administered on at 09:00; Start 07/29/18 at 09:00; Stop 07/29/18 at 09:59; Status DC Fentanyl Citrate (Fentanyl 2ml Vial) 50 mcg 1X ONCE IV Last administered on 07/29/18at 10:14; Start 07/29/18 at 10:00; Stop 07/29/18 at 10:06; Status DC Ketorolac Tromethamine (Toradol 30mg Vial) 30 mg 1X ONCE IV ; Start 07/29/18 at 11:00; Stop 07/29/18 at 11:03; Status DC Ketorolac Tromethamine (Toradol 15mg Vial) 15 mg PRN Q6HRS PRN IV MILD PAIN Last administered on 07/30/18 05:22; Start 07/29/18 at 11:00; Stop 08/03/18 at 10 :59 Oxycodone/ Acetaminophen (Percocet 5/325) 1 tab PRN Q4HRS PRN PO PAIN Last administered on 07/30/18 11:07; Start 07/29/18 at 11:00 Nicotine (Nicoderm Cq 21mg) 1 patch PRN DAILY PRN TD SMOKING CESSATION Last administered on 07/29/18at 23:53; Start 07/29/18 at 11:00 Morphine Sulfate (Morphine Sulfate) 2 mg PRN Q2HR PRN IV MODERATE - SEVERE PAIN Last administered on 07/30/18at 08:42; Start 07/29/18 at 11:00 Labetalol HCl (Normodyne Iv Push) 10 mg PRN Q2HR PRN IVP HYPERTENSION, SEE COMMENTS; Start 07/29/18 at 11:15 Midazolam HCl (Versed) 2 mg STK-MED ONCE .ROUTE ; Start 07/29/18 at 12:36; Stop 07/29/18 at 12:37; Status DC Fentanyl Citrate (Fentanyl 2ml Vial) 100 mcg STK-MED ONCE .ROUTE ; Start at 12:37; Stop 07/29/18 at 12:38; Status DC Flumazenil (Romazicon) 0.5 mg STK-MED ONCE IV ; Start 07/29/18 at 12:37; Stop 07/29/18 at 12:38; Status DC Naloxone HCl (Narcan) 0.4 mg STK-MED ONCE .ROUTE ; Start 07/29/18 at 12:37; Stop 07/29/18 at 12:38; Status DC Lidocaine/Sodium Bicarbonate (Buffered Lidocaine 1%) 3 ml STK-MED ONCE .ROUTE ; Start 07/29/18 at 12:39; Stop 07/29/18 at 12:40; Status DC Fentanyl Citrate (Fentanyl 2ml Vial) 50 mcg 1X ONCE IV Last administered on 07/29/18at 13:15; Start 07/29/18 at 13:15; Stop 07/29/18 at 13:24; Status DC Lidocaine/Sodium Bicarbonate (Buffered Lidocaine 1%) 9 ml 1X ONCE IJ Last administered on 07/29/18at 13:19; Start 07/29/18 at 13:30; Stop 07/29/18 at 13:31; Status DC Active Scripts Active Reported Ibuprofen 400 Mg Tablet 400 Mg PO PRN Q6HRS PRN Vitals/I & O Vital Sign - Last 24 Hours 07/29/18 07/29/18 07/29/18 07/29/18 13:11 13:14 14:00 15:26 Temp 97.9 97.9 Pulse 76 75 70 Resp 16 12 18 B/P (MAP) 122/73 (89) 115/77 (90) 100/65 (77) Pulse Ox 99 99 98 O2 Delivery Nasal Cannula Nasal Cannula Room Air Room Air O2 Flow Rate 2.0 2.0 07/29/18 07/29/18 07/29/18 07/29/18 19:40 20:00 20:47 23:00 Temp 98.5 98.2 98.5 98.2 Pulse 74 76 Resp 18 18 18 B/P (MAP) 93/53 (66) 99/53 (68) Pulse Ox 98 98 98 O2 Delivery Room Air Room Air Room Air Room Air O2 Flow Rate 2.0 07/30/18 07/30/18 07/30/18 07/30/18 02:33 03:30 03:35 06:43 Temp 97.8 97.8 Pulse 76 Resp 16 18 14 B/P (MAP) 95/52 (66) Pulse Ox 98 98 98 98 O2 Delivery Room Air Room Air Room Air Room Air 07/30/18 07/30/18 07/30/18 07/30/18 07:00 07:38 07:43 08:06 Temp 97.9 97.9 Pulse 74 Resp 18 20 B/P (MAP) 84/45 (58) 95/59 (71) Pulse Ox 99 O2 Delivery Room Air Room Air 07/30/18 07/30/18 07/30/18 07/30/18 08:42 09:12 10:48 11:07 Temp 97.8 97.8 Pulse 78 Resp 20 20 16 20 B/P (MAP) 91/57 (68) Pulse Ox 96 O2 Delivery Room Air Intake and Output 07/29/18 07/29/18 07/30/18 14:59 22:59 06:59 Intake Total 1240 ml 1040 ml 720 ml Output Total 875 ml 675 ml Balance 1240 ml 165 ml 45 ml JONATHAN ZAYAS MD Jul 30, 2018 12:07
--- NOTE | 2018-07-30 13:39 | NUR ---
SS following for discharge planning. SS reviewed pt chart. Pt is self pay. [facility]CF[facility] is following for self pay status. Pt is from home and is currently on room air. No discharge needs noted at this time. SS will continue to follow for pending discharge needs.
--- NOTE | 2018-07-30 17:50 | PDOC ---
PULMONARY PROGRESS NOTES Subjective no soa Vitals Vital Signs Date Time Temp Pulse Resp B/P (MAP) Pulse Ox O2 Delivery O2 Flow Rate FiO2 07/30/18 14:53 97.9 72 18 107/60 (76) 99 Room Air 97.9 07/29/18 20:47 2.0 General: Alert, No acute distress Lungs: Other (decrease bs) Cardiovascular: S1, S2 Abdomen: Soft Neuro Exam: Alert Extremities: No Edema Skin: Warm Labs Laboratory Tests Test 07/29/18 08:25 White Blood Count 9.7 x10^3/uL (4.0-11.0) Red Blood Count 5.00 x10^6/uL (3.50-5.40) Hemoglobin 15.3 g/dL (12.0-15.5) Hematocrit 45.0 % (36.0-47.0) Mean Corpuscular Volume 90 fL (79-100) Mean Corpuscular Hemoglobin 31 pg (25-35) Mean Corpuscular Hemoglobin Concent 34 g/dL (31-37) Red Cell Distribution Width 13.5 % (11.5-14.5) Platelet Count 268 x10^3/uL (140-400) Neutrophils (%) (Auto) 54 % (31-73) Lymphocytes (%) (Auto) 33 % (24-48) Monocytes (%) (Auto) 9 % (0-9) Eosinophils (%) (Auto) 3 % (0-3) Basophils (%) (Auto) 1 % (0-3) Neutrophils # (Auto) 5.3 x10^3uL (1.8-7.7) Lymphocytes # (Auto) 3.2 x10^3/uL (1.0-4.8) Monocytes # (Auto) 0.9 x10^3/uL (0.0-1.1) Eosinophils # (Auto) 0.3 x10^3/uL (0.0-0.7) Basophils # (Auto) 0.1 x10^3/uL (0.0-0.2) D-Dimer (Ginger) < 0.27 ug/mlFEU Sodium Level 141 mmol/L (136-145) Potassium Level 3.9 mmol/L (3.5-5.1) Chloride Level 105 mmol/L (98-107) Carbon Dioxide Level 26 mmol/L (21-32) Anion Gap 10 (6-14) Blood Urea Nitrogen 12 mg/dL (7-20) Creatinine 0.7 mg/dL (0.6-1.0) Estimated GFR (Cockcroft-Gault) 93.6 BUN/Creatinine Ratio 17 (6-20) Glucose Level 121 mg/dL (70-99) Calcium Level 9.0 mg/dL (8.5-10.1) Magnesium Level 2.0 mg/dL (1.8-2.4) Total Bilirubin 0.3 mg/dL (0.2-1.0) Aspartate Amino Transf (AST/SGOT) 19 U/L (15-37) Alanine Aminotransferase (ALT/SGPT) 27 U/L (14-59) Alkaline Phosphatase 115 U/L (46-116) Troponin I Quantitative < 0.017 ng/mL (0.000-0.055) HW-Dga-U-Type Natriuretic Peptide 52 pg/mL (0-124) Total Protein 7.6 g/dL (6.4-8.2) Albumin 4.0 g/dL (3.4-5.0) Albumin/Globulin Ratio 1.1 (1.0-1.7) Lipase 186 U/L (73-393) Medications Active Scripts Medications Dose Route/Sig Max Daily Dose Days Date Category Ibuprofen 400 Mg Tablet 400 Mg PO PRN Q6HRS PRN 07/29/18 Reported Impression . 1. Spontaneous left-sided pneumothorax in a patient who was a smoker and that is the likely risk factor. One should rule out alpha-1 antitrypsin deficiency as an outpatient. The lung has expanded, but still 30-35% pneumothorax still present. 3. History of tobaccoism. Plan . 1. Continue chest tube to suction 2. Follow daily chest x-rays. residual PTX 10% seen today 3. May do CT chest to assess for any blebs once lung expanded 4. Outpatient alpha 1 antitrypsin level. Not available in-house. 5. P.r.n. bronchodilators. 6. Pain control. 7. Discussed with ALESIA DE LUNA MD Jul 30, 2018 17:50
[2018-07-30] MEDS: NICOTINE 21MG PATCH. TD PRN (22:35)
--- NOTE | 2018-07-30 23:14 | NUR ---
Chest tube noted to have sanguinous fluid in the clear portion of the small diameter pigtail which is not draining toward collection box. All settings on collection box are appropriate: -20 mmHg, orange eileen expanded to the arrow on the right, no tidaling noted and 7cc drainage total collected over last two shifts. No leakage, no kinking noted. New vacuum regulator at wall installed, pigtail "milked" and attempts to strip drainage by hand using finger strength unsuccessful. liz Jimenez RN in ICU consulted via phone and CXR and pulmonology notes reviewed. CXR showed minimal 10mm plueral separation in L apex. Patient not experiencing soa, is in sinus rhythm, is able to take moderately deep breaths when prompted, has a fairly strong non-productive cough. Her pain has been similar in severity, location, description to pain on previous two shifts. No further action taken, will continue to monitor.
[2018-07-31] MEDS: oxyCODONE/APAP 5/325 1 TAB TABLET PO PRN ×3 (00:30→20:00)
[2018-07-31 03:10] VITALS: BP 107/61
[2018-07-31] MEDS: KETOROLAC 15 MG/ML VIAL. IV PRN ×3 (05:25→23:33)
[2018-07-31 07:00] VITALS: BP 111/71
--- NOTE | 2018-07-31 08:13 | RAD ---
Single view of the chest. 07/31/2018 9:00 AM Indication: PNEUMOTHORAX Comparison: Chest radiograph, yesterday Findings: Left thoracostomy tube again noted. Continued improvement in left pneumothorax is seen with only trace residual pneumothorax likely present. There is diffuse interstitial coarsening, stable, likely chronic. Lungs are otherwise clear. Heart size is normal. Bony thorax is unchanged. IMPRESSION: Left thoracostomy tube remains in place with continued improvement in left apical pneumothorax. Trace left apical pneumothorax remains. Electronically signed by: Doni Rivas MD (07/31/2018 8:10 AM) [id number]
--- NOTE | 2018-07-31 09:17 | RAD ---
Left thoracostomy tube placement, CT-guided. July 29, 2018 Indication: Incomplete resolution of pneumothorax Discussion: The risks and benefits of the procedure were discussed the patient. Informed consent was obtained. Timeout procedure was performed. The left chest was prepped and draped using sterile barrier technique. CT imaging demonstrates persistent large left pneumothorax despite small caliber thoracostomy tube. An anterior approach was chosen. 1% lidocaine was administered for local anesthesia. A 5 Trin[place] sheath needle was advanced to the pleural space under intermittent CT guidance. Air was aspirated. A guidewire was advanced into the pleural space over which following dilatation a 10 Trin[place] pigtail drainage catheter was advanced into the pleural space. Position was confirmed with CT. New catheter was secured in place. Sterile dressings were applied. The previously placed left-sided thoracostomy tube was removed. Sterile dressings were applied. Impression: 1. CT-guided placement, left thoracostomy tube 2. Removal pre-existing left thoracostomy tube PQRS Compliance Statement: One or more of the following individualized dose reduction techniques were utilized for this examination: 1. Automated exposure control 2. Adjustment of the mA and/or kV according to patient size 3. Use of iterative reconstruction technique
--- NOTE | 2018-07-31 10:09 | PDOC ---
PULMONARY PROGRESS NOTES Subjective no soa Vitals Vital Signs Date Time Temp Pulse Resp B/P (MAP) Pulse Ox O2 Delivery O2 Flow Rate FiO2 07/31/18 09:37 20 07/31/18 08:00 Room Air 07/31/18 07:00 98.1 74 111/71 (84) 99 98.1 07/30/18 20:06 2.0 General: Alert, No acute distress Lungs: Other (decrease bs) Cardiovascular: S1, S2 Abdomen: Soft Neuro Exam: Alert Extremities: No Edema Skin: Warm Medications Active Scripts Medications Dose Route/Sig Max Daily Dose Days Date Category Ibuprofen 400 Mg Tablet 400 Mg PO PRN Q6HRS PRN 07/29/18 Reported Comments CXR tiny left apical PTX Impression . 1. Spontaneous left-sided pneumothorax in a patient who was a smoker and that is the likely risk factor. One should rule out alpha-1 antitrypsin deficiency as an outpatient. The lung has expanded, 3. History of tobaccoism. Plan . 1. Continue chest tube to suction 2. Follow daily chest x-rays. residual PTX 5% seen today 3. May do CT chest in am to assess for any blebs 4. Outpatient alpha 1 antitrypsin level. Not available in-house. 5. P.r.n. bronchodilators. 6. Pain control. 7. Discussed with RN/ PT 8. If the lung expands completely in am, consider clamping ct 24 hrs ALESIA HERNANDEZ MD Jul 31, 2018 10:09
--- NOTE | 2018-07-31 10:45 | PDOC ---
PROGRESS NOTES Chief Complaint Chief Complaint Spontaneous pneumothorax History of tobacco abuse Counseling done Chest discomfort as a consequence of pneumothorax Plan: Continue current care chest tube CT in ama Pain management Further recommendations based on clinical course History of Present Illness History of Present Illness Patient complaining of discomfort over the affected side. Patient denies cough no sputum production no fever or chills were reported. Plan of care is going detail and all of her concerns were addressed to the best of my abilities Vitals Vitals Vital Signs Date Time Temp Pulse Resp B/P (MAP) Pulse Ox O2 Delivery O2 Flow Rate FiO2 07/31/18 09:37 20 07/31/18 08:00 Room Air 07/31/18 07:00 98.1 74 111/71 (84) 99 98.1 07/30/18 20:06 2.0 Physical Exam General: Alert, Oriented X3, Cooperative, No acute distress Lungs: Other (decrease bs) Abdomen: Normal bowel sounds, Soft, No tenderness, No hepatosplenomegaly, No masses Extremities: No clubbing, No cyanosis, No edema, Normal pulses, No tenderness/ swelling Skin: No rashes, No breakdown, No significant lesion Review of Systems Review of Systems Pertinent as per history of present illness otherwise 14 point review of system is negative Assessment and Plan Assessmemt and Plan Problems Medical Problems: (1) Left-sided chest pain Status: Acute (2) Spontaneous pneumothorax Status: Acute Comment Review of Relevant I have reviewed the following items monik (where applicable) has been applied. Medications Current Medications Ketorolac Tromethamine (Toradol 30mg Vial) 30 mg 1X ONCE IV Last administered on 07/29/18 08:55; Start 07/29/18 at 08:30; Stop 07/29/18 at 08:46; Status DC Cyclobenzaprine HCl (Flexeril) 10 mg 1X ONCE PO Last administered on 07/29/18 08:53; Start 07/29/18 at 08:30; Stop 07/29/18 at 08:46; Status DC Fentanyl Citrate (Fentanyl 2ml Vial) 50 mcg 1X ONCE IV Last administered on 09:15; Start 07/29/18 at 09:00; Stop 07/29/18 at 09:08; Status DC Sodium Chloride 1,000 ml @ 1,000 mls/hr 1X ONCE IV Last administered on 4/8/ 19at 09:00; Start 07/29/18 at 09:00; Stop 07/29/18 at 09:59; Status DC Fentanyl Citrate (Fentanyl 2ml Vial) 50 mcg 1X ONCE IV Last administered on 07/29/18at 10:14; Start 07/29/18 at 10:00; Stop 07/29/18 at 10:06; Status DC Ketorolac Tromethamine (Toradol 30mg Vial) 30 mg 1X ONCE IV ; Start 07/29/18 at 11:00; Stop 07/29/18 at 11:03; Status DC Ketorolac Tromethamine (Toradol 15mg Vial) 15 mg PRN Q6HRS PRN IV MILD PAIN Last administered on 07/31/18at 05:25; Start 07/29/18 at 11:00; Stop 08/03/18 at 10:59 Oxycodone/ Acetaminophen (Percocet 5/325) 1 tab PRN Q4HRS PRN PO PAIN Last administered on 07/31/18at 08:37; Start 07/29/18 at 11:00 Nicotine (Nicoderm Cq 21mg) 1 patch PRN DAILY PRN TD SMOKING CESSATION Last administered on 07/30/18at 22:35; Start 07/29/18 at 11:00 Morphine Sulfate (Morphine Sulfate) 2 mg PRN Q2HR PRN IV MODERATE - SEVERE PAIN Last administered on 07/30/18at 08:42; Start 07/29/18 at 11:00 Labetalol HCl (Normodyne Iv Push) 10 mg PRN Q2HR PRN IVP HYPERTENSION, SEE COMMENTS; Start 07/29/18 at 11:15 Midazolam HCl (Versed) 2 mg STK-MED ONCE .ROUTE ; Start 07/29/18 at 12:36; Stop 07/29/18 at 12:37; Status DC Fentanyl Citrate (Fentanyl 2ml Vial) 100 mcg STK-MED ONCE .ROUTE ; Start at 12:37; Stop 07/29/18 at 12:38; Status DC Flumazenil (Romazicon) 0.5 mg STK-MED ONCE IV ; Start 07/29/18 at 12:37; Stop 07/29/18 at 12:38; Status DC Naloxone HCl (Narcan) 0.4 mg STK-MED ONCE .ROUTE ; Start 07/29/18 at 12:37; Stop 07/29/18 at 12:38; Status DC Lidocaine/Sodium Bicarbonate (Buffered Lidocaine 1%) 3 ml STK-MED ONCE .ROUTE ; Start 07/29/18 at 12:39; Stop 07/29/18 at 12:40; Status DC Fentanyl Citrate (Fentanyl 2ml Vial) 50 mcg 1X ONCE IV Last administered on 07/29/18at 13:15; Start 07/29/18 at 13:15; Stop 07/29/18 at 13:24; Status DC Lidocaine/Sodium Bicarbonate (Buffered Lidocaine 1%) 9 ml 1X ONCE IJ Last administered on 07/29/18at 13:19; Start 07/29/18 at 13:30; Stop 07/29/18 at 13:31; Status DC Active Scripts Active Reported Ibuprofen 400 Mg Tablet 400 Mg PO PRN Q6HRS PRN Vitals/I & O Vital Sign - Last 24 Hours 07/30/18 07/30/18 07/30/18 07/30/18 10:48 11:07 14:53 19:20 Temp 97.8 97.9 98.3 97.8 97.9 98.3 Pulse 78 72 74 Resp 16 20 18 18 B/P (MAP) 91/57 (68) 107/60 (76) 121/73 (89) Pulse Ox 96 99 99 O2 Delivery Room Air Room Air Room Air 07/30/18 07/30/18 07/30/18 07/31/18 20:00 20:06 23:00 00:30 Temp 98.2 98.2 Pulse 66 Resp 14 18 14 B/P (MAP) 114/67 (83) Pulse Ox 99 98 98 O2 Delivery Room Air Room Air Room Air Room Air O2 Flow Rate 2.0 07/31/18 07/31/18 07/31/18 07/31/18 01:35 03:10 07:00 08:00 Temp 97.8 98.1 97.8 98.1 Pulse 65 74 Resp 18 18 B/P (MAP) 107/61 (76) 111/71 (84) Pulse Ox 98 97 99 O2 Delivery Room Air Room Air Room Air Room Air 07/31/18 07/31/18 08:37 09:37 Resp 20 20 Intake and Output 07/30/18 07/30/18 07/31/18 15:00 23:00 07:00 Intake Total 360 ml 240 ml 700 ml Output Total 425 ml 1100 ml Balance -65 ml -860 ml 700 ml JONATHAN ZAYAS MD Jul 31, 2018 10:45
[2018-07-31 11:00] VITALS: BP 98/64
[2018-07-31 14:38] VITALS: BP 106/62
[2018-07-31 19:31] VITALS: BP 112/62
[2018-07-31 23:21] VITALS: BP 104/61
[2018-07-31] MEDS: NICOTINE 21MG PATCH. TD PRN (23:32)
[2018-08-01 03:26] VITALS: BP 95/60
[2018-08-01] MEDS: oxyCODONE/APAP 5/325 1 TAB TABLET PO PRN ×3 (03:37→20:19)
[2018-08-01 07:00] VITALS: BP 109/65
--- NOTE | 2018-08-01 08:09 | RAD ---
Single view of the chest. 08/01/2018 9:00 AM Indication: PNEUMOTHORAX Comparison: Chest radiograph, yesterday Findings: Small left apical pneumothorax has mildly increased in size. Multifocal mild areas of discoid atelectasis are noted. Left thoracostomy tube remains in place. Diffuse interstitial coarsening is stable. Right lung otherwise clear. Heart size is normal. Bony thorax is unchanged. IMPRESSION: 1.Mild increase in small left apical pneumothorax. Left chest tube remains in place. 2. Mild multifocal left-sided discoid atelectasis Electronically signed by: Doni Rivas MD (08/01/2018 8:06 AM) [id number]
[2018-08-01] MEDS: KETOROLAC 15 MG/ML VIAL. IV PRN ×2 (09:42→15:36)
--- NOTE | 2018-08-01 10:12 | PDOC ---
PULMONARY PROGRESS NOTES Subjective no so, no cough Vitals Vital Signs Date Time Temp Pulse Resp B/P (MAP) Pulse Ox O2 Delivery O2 Flow Rate FiO2 08/01/18 08:00 Room Air 08/01/18 07:00 98.1 70 16 109/65 (80) 96 98.1 08/01/18 04:37 2.0 ROS: No Nausea General: Alert, No acute distress HEENT: Other (nc at perrl ) Lungs: Other (decrease bs, l ct) Cardiovascular: S1, S2 Abdomen: Soft, Non-tender Neuro Exam: Alert, Oriented Extremities: No Edema Skin: Warm Medications Active Scripts Medications Dose Route/Sig Max Daily Dose Days Date Category Ibuprofen 400 Mg Tablet 400 Mg PO PRN Q6HRS PRN 07/29/18 Reported Comments reviewed cxr 1.Mild increase in small left apical pneumothorax. Left chest tube remains in place. 2. Mild multifocal left-sided discoid atelectasis Impression . 1. Spontaneous left-sided pneumothorax in a patient who was a smoker and that is the likely risk factor. One should rule out alpha-1 antitrypsin deficiency as an outpatient. The lung has expanded, 3. History of tobaccoism. Plan . 1. Continue chest tube, increase suction to -40, ptx slightly larger 2. Follow daily chest x-rays. residual PTX 5% seen today 3. May do CT chest in am to assess for any blebs 4. Outpatient alpha 1 antitrypsin level. Not available in-house. 5. P.r.n. bronchodilators. 6. Pain control. 7. Discussed with RN/ PT ZHANG NEFF MD Aug 01, 2018 10:12
[2018-08-01 11:00] VITALS: BP 115/65
[2018-08-01 15:00] VITALS: BP 125/70
--- NOTE | 2018-08-01 15:19 | RAD ---
Examination: CT chest without contrast HISTORY: History of pneumothorax, apical bleb COMPARISON: CT from 07/29/2018 TECHNIQUE: Axial CT images of the chest were performed without contrast. Coronal and sagittal reformats are performed. Exposure: One or more of the following individualized dose reduction techniques were utilized for this examination: 1. Automated exposure control 2. Adjustment of the mA and/or kV according to patient size 3. Use of iterative reconstruction technique FINDINGS: Examination limited due to lack of IV contrast. The heart size grossly appears unremarkable The caliber of the aorta grossly appears unremarkable. Moderate-sized left pneumothorax is again identified are decreased in size compared to prior exam. A left pigtail chest tube is identified in the left apical pleural space. Mild left lung base airspace opacities likely atelectasis or infiltrate. Noncontrasted liver, spleen, adrenals grossly appears unremarkable Small sclerotic density identified in the vertebral body T9 measuring 9 mm probably a bone island. IMPRESSION: 1. Moderate left pneumothorax identified mild decreased in size compared to prior exam with left-sided chest tube in place. 2. Mild left lung base airspace opacities likely atelectasis or infiltrate. Electronically signed by: Richard Almonte MD (08/01/2018 3:16 PM) [id number]
[2018-08-01] MEDS ORDERED: POLYETHYLENE GLYCOL 3350 17 GM PACKET. PO ONE (17:30)
[2018-08-01] MEDS ORDERED: SENNOSIDES 8.6 MG TABLET PO ONE (17:30)
--- NOTE | 2018-08-01 19:38 | PDOC ---
PROGRESS NOTES Chief Complaint Chief Complaint Spontaneous pneumothorax History of tobacco abuse Counseling done Chest discomfort as a consequence of pneumothorax Plan: Continue current care chest tube CT in ama Pain management Further recommendations based on clinical course History of Present Illness History of Present Illness Patient complaining of discomfort over the affected side with sensation of wheezing underneath her rib cage. Patient denies cough no sputum production no fever or chills were reported. Plan of care discussed, patient hoping to be discharged soon. Vitals Vitals Vital Signs Date Time Temp Pulse Resp B/P (MAP) Pulse Ox O2 Delivery O2 Flow Rate FiO2 08/01/18 15:00 98.4 71 16 125/70 (88) 100 Room Air 98.4 08/01/18 04:37 2.0 Physical Exam General: Alert, Oriented X3, Cooperative, No acute distress Lungs: Other (decrease bs, l ct) Abdomen: Normal bowel sounds, Soft, No tenderness, No hepatosplenomegaly, No masses Extremities: No clubbing, No cyanosis, No edema, Normal pulses, No tenderness/ swelling Skin: No rashes, No breakdown, No significant lesion Assessment and Plan Assessmemt and Plan Problems Medical Problems: (1) Left-sided chest pain Status: Acute (2) Spontaneous pneumothorax Status: Acute Comment Review of Relevant I have reviewed the following items monik (where applicable) has been applied. Medications Current Medications Ketorolac Tromethamine (Toradol 30mg Vial) 30 mg 1X ONCE IV Last administered on 07/29/18 08:55; Start 07/29/18 at 08:30; Stop 07/29/18 at 08:46; Status DC Cyclobenzaprine HCl (Flexeril) 10 mg 1X ONCE PO Last administered on 07/29/18 08:53; Start 07/29/18 at 08:30; Stop 07/29/18 at 08:46; Status DC Fentanyl Citrate (Fentanyl 2ml Vial) 50 mcg 1X ONCE IV Last administered on 09:15; Start 07/29/18 at 09:00; Stop 07/29/18 at 09:08; Status DC Sodium Chloride 1,000 ml @ 1,000 mls/hr 1X ONCE IV Last administered on 09:00; Start 07/29/18 at 09:00; Stop 07/29/18 at 09:59; Status DC Fentanyl Citrate (Fentanyl 2ml Vial) 50 mcg 1X ONCE IV Last administered on 07/29/18at 10:14; Start 07/29/18 at 10:00; Stop 07/29/18 at 10:06; Status DC Ketorolac Tromethamine (Toradol 30mg Vial) 30 mg 1X ONCE IV ; Start 07/29/18 at 11:00; Stop 07/29/18 at 11:03; Status DC Ketorolac Tromethamine (Toradol 15mg Vial) 15 mg PRN Q6HRS PRN IV MILD PAIN Last administered on 08/01/18at 15:36; Start 07/29/18 at 11:00; Stop 08/03/18 at 10:59 Oxycodone/ Acetaminophen (Percocet 5/325) 1 tab PRN Q4HRS PRN PO PAIN Last administered on 08/01/18at 12:02; Start 07/29/18 at 11:00 Nicotine (Nicoderm Cq 21mg) 1 patch PRN DAILY PRN TD SMOKING CESSATION Last administered on 07/31/18at 23:32; Start 07/29/18 at 11:00 Morphine Sulfate (Morphine Sulfate) 2 mg PRN Q2HR PRN IV MODERATE - SEVERE PAIN Last administered on 07/30/18at 08:42; Start 07/29/18 at 11:00 Labetalol HCl (Normodyne Iv Push) 10 mg PRN Q2HR PRN IVP HYPERTENSION, SEE COMMENTS; Start 07/29/18 at 11:15 Midazolam HCl (Versed) 2 mg STK-MED ONCE .ROUTE ; Start 07/29/18 at 12:36; Stop 07/29/18 at 12:37; Status DC Fentanyl Citrate (Fentanyl 2ml Vial) 100 mcg STK-MED ONCE .ROUTE ; Start at 12:37; Stop 07/29/18 at 12:38; Status DC Flumazenil (Romazicon) 0.5 mg STK-MED ONCE IV ; Start 07/29/18 at 12:37; Stop 07/29/18 at 12:38; Status DC Naloxone HCl (Narcan) 0.4 mg STK-MED ONCE .ROUTE ; Start 07/29/18 at 12:37; Stop 07/29/18 at 12:38; Status DC Lidocaine/Sodium Bicarbonate (Buffered Lidocaine 1%) 3 ml STK-MED ONCE .ROUTE ; Start 07/29/18 at 12:39; Stop 07/29/18 at 12:40; Status DC Fentanyl Citrate (Fentanyl 2ml Vial) 50 mcg 1X ONCE IV Last administered on 07/29/18at 13:15; Start 07/29/18 at 13:15; Stop 07/29/18 at 13:24; Status DC Lidocaine/Sodium Bicarbonate (Buffered Lidocaine 1%) 9 ml 1X ONCE IJ Last administered on 07/29/18at 13:19; Start 07/29/18 at 13:30; Stop 07/29/18 at 13:31; Status DC Sennosides (Senna) 17.2 mg 1X ONCE PO Last administered on 08/01/18at 17:20; Start 08/01/18 at 17:30; Stop 08/01/18 at 17:31; Status DC Polyethylene Glycol (miraLAX PACKET) 17 gm 1X ONCE PO Last administered on 03/11at 17:20; Start 08/01/18 at 17:30; Stop 08/01/18 at 17:31; Status DC Active Scripts Active Reported Ibuprofen 400 Mg Tablet 400 Mg PO PRN Q6HRS PRN Vitals/I & O Vital Sign - Last 24 Hours 07/31/18 07/31/18 07/31/18 08/01/18 20:00 20:00 23:21 03:26 Temp 98.7 98.1 98.7 98.1 Pulse 66 70 Resp 18 16 16 B/P (MAP) 104/61 (75) 95/60 (72) Pulse Ox 98 98 97 O2 Delivery Room Air Room Air Room Air Room Air O2 Flow Rate 2.0 2.0 08/01/18 08/01/18 08/01/18 08/01/18 03:37 04:37 07:00 08:00 Temp 98.1 98.1 Pulse 70 Resp 16 18 16 B/P (MAP) 109/65 (80) Pulse Ox 97 96 O2 Delivery Room Air Room Air Room Air O2 Flow Rate 2.0 2.0 08/01/18 08/01/18 08/01/18 08/01/18 11:00 12:02 13:04 15:00 Temp 98.6 98.4 98.6 98.4 Pulse 87 71 Resp 16 16 B/P (MAP) 115/65 (82) 125/70 (88) Pulse Ox 97 97 97 100 O2 Delivery Room Air Room Air Room Air Room Air Intake and Output 07/31/18 07/31/18 08/01/18 15:00 23:00 07:00 Intake Total 360 ml 360 ml 800 ml Output Total 450 ml 425 ml 635 ml Balance -90 ml -65 ml 165 ml Nutrition Consultation Dietary Evaluation: Recommendations by RD: Increase Calorie Intake, Protein supplementation Comments: REC continue w/regular diet, honor food preferences, and provide snacks as requested REC Ensure (vanilla) TID Expected Outcomes/Goals: PO intake to meet >75% est needs Malnutrition Findings: Food and Nutrition Intake (Mod: <75% est energy req 7days Weight Status: Appropriate JONATHAN ZAYAS MD Aug 01, 2018 19:38
[2018-08-01 19:50] VITALS: BP 122/67
[2018-08-01 22:56] VITALS: BP 119/70
[2018-08-02] VITALS (21 sets, daily range): BP systolic 103–123; BP diastolic 58–79
[2018-08-02] MEDS: KETOROLAC 15 MG/ML VIAL. IV PRN ×3 (00:56→20:02)
--- NOTE | 2018-08-02 08:27 | PDOC ---
PROGRESS NOTES Chief Complaint Chief Complaint Spontaneous pneumothorax History of tobacco abuse Counseling done Chest discomfort as a consequence of pneumothorax Plan: Continue current care chest tube CT chest D/w IR for repositioning of CT Pain management Further recommendations based on clinical course History of Present Illness History of Present Illness CXR looks worse today. Has a headache. Patient complaining of discomfort over the affected side with sensation of wheezing underneath her rib cage. Patient denies cough no sputum production no fever or chills were reported. Plan of care discussed, patient hoping to be discharged soon. Vitals Vitals Vital Signs Date Time Temp Pulse Resp B/P (MAP) Pulse Ox O2 Delivery O2 Flow Rate FiO2 08/02/18 07:00 98.0 80 16 118/67 (84) 97 Room Air 98.0 08/01/18 21:19 2.0 Physical Exam General: Alert, Oriented X3, Cooperative, No acute distress Lungs: Other (decrease bs, l ct) Abdomen: Normal bowel sounds, Soft, No tenderness, No hepatosplenomegaly, No masses Extremities: No clubbing, No cyanosis, No edema, Normal pulses, No tenderness/ swelling Skin: No rashes, No breakdown, No significant lesion Assessment and Plan Assessmemt and Plan Problems Medical Problems: (1) Left-sided chest pain Status: Acute (2) Spontaneous pneumothorax Status: Acute Comment Review of Relevant I have reviewed the following items monik (where applicable) has been applied. Medications Current Medications Ketorolac Tromethamine (Toradol 30mg Vial) 30 mg 1X ONCE IV Last administered on 07/29/18 08:55; Start 07/29/18 at 08:30; Stop 07/29/18 at 08:46; Status DC Cyclobenzaprine HCl (Flexeril) 10 mg 1X ONCE PO Last administered on 07/29/18 08:53; Start 07/29/18 at 08:30; Stop 07/29/18 at 08:46; Status DC Fentanyl Citrate (Fentanyl 2ml Vial) 50 mcg 1X ONCE IV Last administered on 09:15; Start 07/29/18 at 09:00; Stop 07/29/18 at 09:08; Status DC Sodium Chloride 1,000 ml @ 1,000 mls/hr 1X ONCE IV Last administered on 09:00; Start 07/29/18 at 09:00; Stop 07/29/18 at 09:59; Status DC Fentanyl Citrate (Fentanyl 2ml Vial) 50 mcg 1X ONCE IV Last administered on 07/29/18at 10:14; Start 07/29/18 at 10:00; Stop 07/29/18 at 10:06; Status DC Ketorolac Tromethamine (Toradol 30mg Vial) 30 mg 1X ONCE IV ; Start 07/29/18 at 11:00; Stop 07/29/18 at 11:03; Status DC Ketorolac Tromethamine (Toradol 15mg Vial) 15 mg PRN Q6HRS PRN IV MILD PAIN Last administered on 08/02/18at 00:56; Start 07/29/18 at 11:00; Stop 08/03/18 at 10:59 Oxycodone/ Acetaminophen (Percocet 5/325) 1 tab PRN Q4HRS PRN PO PAIN Last administered on 08/01/18at 20:19; Start 07/29/18 at 11:00 Nicotine (Nicoderm Cq 21mg) 1 patch PRN DAILY PRN TD SMOKING CESSATION Last administered on 07/31/18at 23:32; Start 07/29/18 at 11:00 Morphine Sulfate (Morphine Sulfate) 2 mg PRN Q2HR PRN IV MODERATE - SEVERE PAIN Last administered on 07/30/18at 08:42; Start 07/29/18 at 11:00 Labetalol HCl (Normodyne Iv Push) 10 mg PRN Q2HR PRN IVP HYPERTENSION, SEE COMMENTS; Start 07/29/18 at 11:15 Midazolam HCl (Versed) 2 mg STK-MED ONCE .ROUTE ; Start 07/29/18 at 12:36; Stop 07/29/18 at 12:37; Status DC Fentanyl Citrate (Fentanyl 2ml Vial) 100 mcg STK-MED ONCE .ROUTE ; Start at 12:37; Stop 07/29/18 at 12:38; Status DC Flumazenil (Romazicon) 0.5 mg STK-MED ONCE IV ; Start 07/29/18 at 12:37; Stop 07/29/18 at 12:38; Status DC Naloxone HCl (Narcan) 0.4 mg STK-MED ONCE .ROUTE ; Start 07/29/18 at 12:37; Stop 07/29/18 at 12:38; Status DC Lidocaine/Sodium Bicarbonate (Buffered Lidocaine 1%) 3 ml STK-MED ONCE .ROUTE ; Start 07/29/18 at 12:39; Stop 07/29/18 at 12:40; Status DC Fentanyl Citrate (Fentanyl 2ml Vial) 50 mcg 1X ONCE IV Last administered on 07/29/18at 13:15; Start 07/29/18 at 13:15; Stop 07/29/18 at 13:24; Status DC Lidocaine/Sodium Bicarbonate (Buffered Lidocaine 1%) 9 ml 1X ONCE IJ Last administered on 07/29/18at 13:19; Start 07/29/18 at 13:30; Stop 07/29/18 at 13:31; Status DC Sennosides (Senna) 17.2 mg 1X ONCE PO Last administered on 08/01/18at 17:20; Start 08/01/18 at 17:30; Stop 08/01/18 at 17:31; Status DC Polyethylene Glycol (miraLAX PACKET) 17 gm 1X ONCE PO Last administered on 03/11at 17:20; Start 08/01/18 at 17:30; Stop 08/01/18 at 17:31; Status DC Active Scripts Active Reported Ibuprofen 400 Mg Tablet 400 Mg PO PRN Q6HRS PRN Vitals/I & O Vital Sign - Last 24 Hours 08/01/18 08/01/18 08/01/18 08/01/18 11:00 12:02 15:00 19:50 Temp 98.6 98.4 98.1 98.6 98.4 98.1 Pulse 87 71 73 Resp 16 16 18 B/P (MAP) 115/65 (82) 125/70 (88) 122/67 (85) Pulse Ox 97 97 100 100 O2 Delivery Room Air Room Air Room Air Room Air 08/01/18 08/01/18 08/01/18 08/01/18 20:00 20:19 21:19 22:56 Temp 98.4 98.4 Pulse 79 Resp 18 16 20 B/P (MAP) 119/70 (86) Pulse Ox 100 97 97 O2 Delivery Room Air Room Air Room Air Room Air O2 Flow Rate 2.0 2.0 2.0 08/02/18 08/02/18 02:23 07:00 Temp 97.4 98.0 97.4 98.0 Pulse 67 80 Resp 18 16 B/P (MAP) 110/64 (79) 118/67 (84) Pulse Ox 99 97 O2 Delivery Room Air Room Air Intake and Output 08/01/18 08/01/18 08/02/18 15:00 23:00 07:00 Intake Total 220 ml 240 ml 240 ml Output Total 300 ml 600 ml Balance 220 ml -60 ml -360 ml Nutrition Consultation Dietary Evaluation: Recommendations by RD: Increase Calorie Intake, Protein supplementation Comments: REC continue w/regular diet, honor food preferences, and provide snacks as requested REC Ensure (vanilla) TID Expected Outcomes/Goals: PO intake to meet >75% est needs Malnutrition Findings: Food and Nutrition Intake (Mod: <75% est energy req 7days Weight Status: Appropriate YEE CHANEL MD Aug 02, 2018 08:27
--- NOTE | 2018-08-02 08:30 | NUR ---
Pt left chest tube with physician orders to be at -40 suction noted to be at -10 suction upon initial assessment. Pt not experiencing any SOA, vital signs are stable. Physician notified and new order given for CXRAY. Chest tube suction changed to -40 per physician order. Slight bubbling upon deep inhalation. Physician notified of this finding as well. Will continue to monitor.
--- NOTE | 2018-08-02 08:34 | PDOC ---
PULMONARY PROGRESS NOTES Subjective no sob, no cough Vitals Vital Signs Date Time Temp Pulse Resp B/P (MAP) Pulse Ox O2 Delivery O2 Flow Rate FiO2 08/02/18 07:00 98.0 80 16 118/67 (84) 97 Room Air 98.0 08/01/18 21:19 2.0 ROS: No Nausea General: Alert, No acute distress HEENT: Other (nc at perrl ) Lungs: Other (decrease bs, l ct) Cardiovascular: S1, S2 Abdomen: Soft, Non-tender Neuro Exam: Alert, Oriented Extremities: No Edema Skin: Warm Medications Active Scripts Medications Dose Route/Sig Max Daily Dose Days Date Category Ibuprofen 400 Mg Tablet 400 Mg PO PRN Q6HRS PRN 07/29/18 Reported Comments reviewed cxr l ptx worse Impression . 1. Spontaneous left-sided pneumothorax in a patient who was a smoker and that is the likely risk factor. One should rule out alpha-1 antitrypsin deficiency as an outpatient. 3. History of tobaccoism. Plan . 1. Continue chest tube, suction to 40, cxrs reviewed, ptx larger, ct persistent ptx. discussed w dr sandhu, he will review and make a decision to reposition or place a new ct 2. Follow daily chest x-rays. 3. ct reviewed 4. Outpatient alpha 1 antitrypsin level. Not available in-house. 5. P.r.n. bronchodilators. 6. Pain control. 7. Discussed with RN/ PT ZHANG NEFF MD Aug 02, 2018 08:34
[2018-08-02] MEDS: NICOTINE 21MG PATCH. TD PRN (08:52)
[2018-08-02] MEDS: ACETAMINOPHEN 325 MG TABLET. PO PRN (11:30)
--- NOTE | 2018-08-02 12:00 | RAD ---
CHEST PA LATERAL 9:55 AM Clinical indications: CHEST TUBE. TO DO ON INSPIRATION COMPARISON: August 02, 2018 performed at 7:05 AM Findings: Again seen is a left apical pneumothorax which has increased in size now measuring 6.2 cm from the left apical edge. It measured 2.8 cm from the left apical edge previously. No new lung infiltrate or pleural effusion is seen. The heart size, pulmonary vasculature, mediastinum and both ivelisse are unremarkable. Scoliosis is seen. The osseous structures appear intact. Impression: Increase in size of left apical pneumothorax. Electronically signed by: Cory Ballesteros MD (08/02/2018 11:57 AM) [place] [id number]
--- NOTE | 2018-08-02 13:32 | RAD ---
EXAM: CHEST 1 VIEW History: Pneumothorax COMPARISON: 08/01/2018 TECHNIQUE: Single portable radiograph of the chest FINDINGS: The cardiac silhouette is unremarkable. Interval mild increase in left apical pneumothorax . Left-sided pigtail chest tube is identified. The costophrenic sulci are clear and well demarcated. IMPRESSION: Interval mild increase in left apical pneumothorax. Electronically signed by: Richard Almonte MD (08/02/2018 1:29 PM) [facility]
[2018-08-02] MEDS ORDERED: LIDOCAINE WITH 8.4% SOD BICARB 3 ML DISP.SYRIN. ONE (14:23)
[2018-08-02] MEDS ORDERED: MIDAZOLAM HCL/PF 2 MG/2 ML VIAL. ONE (14:43)
[2018-08-02] MEDS ORDERED: fentaNYL PF VIAL 100 MCG/2 ML VIAL ONE (14:43)
[2018-08-02] MEDS ORDERED: LIDOCAINE WITH 8.4% SOD BICARB 3 ML DISP.SYRIN. IJ ONE (15:15)
[2018-08-02] MEDS ORDERED: fentaNYL PF VIAL 100 MCG/2 ML VIAL IV ONE (15:15)
[2018-08-02] MEDS ORDERED: MIDAZOLAM HCL/PF 2 MG/2 ML VIAL. IV ONE (15:15)
--- NOTE | 2018-08-02 15:45 | NUR ---
Pt back to unit s/p chest tube replacement. Pt in bed with chest tube to left chest at -20 suction. No complaints of pain or discomfort, VS stable, will continue to monitor per protocol.
--- NOTE | 2018-08-02 16:44 | RAD ---
CT-guided replacement of left thoracostomy tube 08/02/2018 Indication: Nonfunctional catheter Discussion: The risks and benefits of the procedure discussed the patient. Informed consent was obtained. A timeout procedure was performed. CT imaging demonstrates the pacing catheter to be well-positioned however nonfunctional at assessment. Catheter may occluded. The left upper chest was prepped and draped using sterile barrier technique. A guidewire was advanced through the pre-existing catheter into the pleural space. The pre-existing catheter was removed over wire and replaced with a new 12 Japanese catheter. The new catheter was found to aspirate air freely. Sedation was confirmed with CT. The catheter was connected to Pleur-evac device at -20 cm water. The catheter was secured. Sterile dressings were applied. The procedures performed under conscious sedation including continuous cardiopulmonary monitoring via dedicated sedation nurse. [id number] sedation time: 22 minutes Impression: Replacement of left thoracostomy tube as described
[2018-08-02] MEDS: LUBIPROSTONE 8 MCG CAPSULE PO SCH (16:55)
[2018-08-02] MEDS: MORPHINE SULFATE 2 MG/ML VIAL. IV PRN (16:55)
[2018-08-02] MEDS: oxyCODONE/APAP 5/325 1 TAB TABLET PO PRN (22:50)
[2018-08-03] MEDS: MORPHINE SULFATE 2 MG/ML VIAL. IV PRN ×3 (01:09→21:30)
--- NOTE | 2018-08-03 07:53 | PDOC ---
PROGRESS NOTES Chief Complaint Chief Complaint Spontaneous pneumothorax History of tobacco abuse Counseling done Chest discomfort as a consequence of pneumothorax Plan: Continue current care chest tube CT chest D/w IR for repositioning of CT Pain management Further recommendations based on clinical course History of Present Illness History of Present Illness CXR looked worse 08/02/18 - s/p IR replacement of chest tube Patient complaining of discomfort over the affected side with sensation of wheezing underneath her rib cage. Patient denies cough no sputum production no fever or chills were reported. Plan of care discussed, patient hoping to be discharged soon. She does feel better overall today Vitals Vitals Vital Signs Date Time Temp Pulse Resp B/P (MAP) Pulse Ox O2 Delivery O2 Flow Rate FiO2 08/03/18 03:00 63 18 99 Room Air 08/02/18 23:30 98.1 123/78 (93) 98.1 08/02/18 18:08 2.0 Physical Exam General: Alert, Oriented X3, Cooperative, No acute distress Lungs: Other (decrease bs, l ct) Abdomen: Normal bowel sounds, Soft, No tenderness, No hepatosplenomegaly, No masses Extremities: No clubbing, No cyanosis, No edema, Normal pulses, No tenderness/ swelling Skin: No rashes, No breakdown, No significant lesion Assessment and Plan Assessmemt and Plan Problems Medical Problems: (1) Left-sided chest pain Status: Acute (2) Spontaneous pneumothorax Status: Acute Comment Review of Relevant I have reviewed the following items monik (where applicable) has been applied. Medications Current Medications Ketorolac Tromethamine (Toradol 30mg Vial) 30 mg 1X ONCE IV Last administered on 07/29/18 08:55; Start 07/29/18 at 08:30; Stop 07/29/18 at 08:46; Status DC Cyclobenzaprine HCl (Flexeril) 10 mg 1X ONCE PO Last administered on 07/29/18 08:53; Start 07/29/18 at 08:30; Stop 07/29/18 at 08:46; Status DC Fentanyl Citrate (Fentanyl 2ml Vial) 50 mcg 1X ONCE IV Last administered on 09:15; Start 07/29/18 at 09:00; Stop 07/29/18 at 09:08; Status DC Sodium Chloride 1,000 ml @ 1,000 mls/hr 1X ONCE IV Last administered on at 09:00; Start 07/29/18 at 09:00; Stop 07/29/18 at 09:59; Status DC Fentanyl Citrate (Fentanyl 2ml Vial) 50 mcg 1X ONCE IV Last administered on 07/29/18at 10:14; Start 07/29/18 at 10:00; Stop 07/29/18 at 10:06; Status DC Ketorolac Tromethamine (Toradol 30mg Vial) 30 mg 1X ONCE IV ; Start 07/29/18 at 11:00; Stop 07/29/18 at 11:03; Status DC Ketorolac Tromethamine (Toradol 15mg Vial) 15 mg PRN Q6HRS PRN IV MILD PAIN Last administered on 08/02/18at 20:02; Start 07/29/18 at 11:00; Stop 08/03/18 at 10:59 Oxycodone/ Acetaminophen (Percocet 5/325) 1 tab PRN Q4HRS PRN PO PAIN Last administered on 08/02/18at 22:50; Start 07/29/18 at 11:00 Nicotine (Nicoderm Cq 21mg) 1 patch PRN DAILY PRN TD SMOKING CESSATION Last administered on 08/02/18at 08:52; Start 07/29/18 at 11:00 Morphine Sulfate (Morphine Sulfate) 2 mg PRN Q2HR PRN IV MODERATE - SEVERE PAIN Last administered on 08/03/18at 01:09; Start 07/29/18 at 11:00 Labetalol HCl (Normodyne Iv Push) 10 mg PRN Q2HR PRN IVP HYPERTENSION, SEE COMMENTS; Start 07/29/18 at 11:15 Midazolam HCl (Versed) 2 mg STK-MED ONCE .ROUTE ; Start 07/29/18 at 12:36; Stop 07/29/18 at 12:37; Status DC Fentanyl Citrate (Fentanyl 2ml Vial) 100 mcg STK-MED ONCE .ROUTE ; Start at 12:37; Stop 07/29/18 at 12:38; Status DC Flumazenil (Romazicon) 0.5 mg STK-MED ONCE IV ; Start 07/29/18 at 12:37; Stop 07/29/18 at 12:38; Status DC Naloxone HCl (Narcan) 0.4 mg STK-MED ONCE .ROUTE ; Start 07/29/18 at 12:37; Stop 07/29/18 at 12:38; Status DC Lidocaine/Sodium Bicarbonate (Buffered Lidocaine 1%) 3 ml STK-MED ONCE .ROUTE ; Start 07/29/18 at 12:39; Stop 07/29/18 at 12:40; Status DC Fentanyl Citrate (Fentanyl 2ml Vial) 50 mcg 1X ONCE IV Last administered on 07/29/18at 13:15; Start 07/29/18 at 13:15; Stop 07/29/18 at 13:24; Status DC Lidocaine/Sodium Bicarbonate (Buffered Lidocaine 1%) 9 ml 1X ONCE IJ Last administered on 07/29/18at 13:19; Start 07/29/18 at 13:30; Stop 07/29/18 at 13:31; Status DC Sennosides (Senna) 17.2 mg 1X ONCE PO Last administered on 08/01/18at 17:20; Start 08/01/18 at 17:30; Stop 08/01/18 at 17:31; Status DC Polyethylene Glycol (miraLAX PACKET) 17 gm 1X ONCE PO Last administered on 03/11at 17:20; Start 08/01/18 at 17:30; Stop 08/01/18 at 17:31; Status DC Lubiprostone (Amitiza) 8 mcg BIDWMEALS PO Last administered on 08/02/18at 16:55 ; Start 08/02/18 at 17:00 Acetaminophen (Tylenol) 650 mg PRN Q6HRS PRN PO headache Last administered on at 11:30; Start 08/02/18 at 11:00 Lidocaine/Sodium Bicarbonate (Buffered Lidocaine 1%) 3 ml STK-MED ONCE .ROUTE ; Start 08/02/18 at 14:23; Stop 08/02/18 at 14:24; Status DC Midazolam HCl (Versed) 2 mg STK-MED ONCE .ROUTE ; Start 08/02/18 at 14:43; Stop 08/02/18 at 14:44; Status DC Fentanyl Citrate (Fentanyl 2ml Vial) 100 mcg STK-MED ONCE .ROUTE ; Start at 14:43; Stop 08/02/18 at 14:44; Status DC Lidocaine/Sodium Bicarbonate (Buffered Lidocaine 1%) 3 ml 1X ONCE IJ Last administered on 08/02/18at 15:09; Start 08/02/18 at 15:15; Stop 08/02/18 at 15:16 ; Status DC Midazolam HCl (Versed) 2 mg 1X ONCE IV Last administered on 08/02/18at 15:09; Start 08/02/18 at 15:15; Stop 08/02/18 at 15:16; Status DC Fentanyl Citrate (Fentanyl 2ml Vial) 100 mcg 1X ONCE IV Last administered on at 15:09; Start 08/02/18 at 15:15; Stop 08/02/18 at 15:16; Status DC Active Scripts Active Reported Ibuprofen 400 Mg Tablet 400 Mg PO PRN Q6HRS PRN Vitals/I & O Vital Sign - Last 24 Hours 08/02/18 08/02/18 08/02/18 08/02/18 08:00 11:00 14:54 14:59 Temp 98.0 98.0 Pulse 103 82 80 Resp 16 15 18 B/P (MAP) 109/62 (78) Pulse Ox 98 99 97 O2 Delivery Room Air Room Air Nasal Cannula Nasal Cannula O2 Flow Rate 2.0 2.0 2.0 08/02/18 08/02/18 08/02/18 08/02/18 15:04 15:09 15:09 15:14 Pulse 83 78 78 Resp 19 13 20 11 Pulse Ox 99 98 98 98 O2 Delivery Nasal Cannula Nasal Cannula Nasal Cannula Nasal Cannula O2 Flow Rate 2.0 2.0 2.0 2.0 08/02/18 08/02/18 08/02/18 08/02/18 15:45 16:00 16:10 16:15 Pulse 69 73 69 Resp 14 B/P (MAP) 107/67 (80) 103/65 (78) 108/65 (79) Pulse Ox 98 O2 Delivery Room Air O2 Flow Rate 2.0 08/02/18 08/02/18 08/02/18 08/02/18 16:30 16:45 16:55 17:00 Pulse 76 77 79 Resp 15 B/P (MAP) 108/67 (81) 105/67 (80) 110/72 (85) Pulse Ox 98 O2 Delivery Room Air O2 Flow Rate 2.0 08/02/18 08/02/18 08/02/18 08/02/18 17:15 17:30 17:45 18:00 Pulse 83 84 84 76 B/P (MAP) 114/75 (88) 119/78 (92) 117/79 (92) 107/63 (78) 08/02/18 08/02/18 08/02/18 08/02/18 18:08 18:15 19:43 20:00 Temp 98.1 98.1 Pulse 84 80 Resp 17 B/P (MAP) 107/65 (79) 108/67 (81) Pulse Ox 97 O2 Delivery Room Air Room Air O2 Flow Rate 2.0 08/02/18 08/02/18 08/02/18 08/03/18 22:50 23:30 23:50 01:09 Temp 98.1 98.1 Pulse 77 Resp 20 22 20 20 B/P (MAP) 123/78 (93) Pulse Ox 97 100 95 96 O2 Delivery Room Air Room Air Room Air Room Air 08/03/18 08/03/18 01:39 03:00 Pulse 63 Resp 20 18 Pulse Ox 96 99 O2 Delivery Room Air Room Air Intake and Output 08/02/18 08/02/18 08/03/18 15:00 23:00 07:00 Intake Total 220 ml 360 ml 300 ml Output Total 351 ml 325 ml 300 ml Balance -131 ml 35 ml 0 ml Nutrition Consultation Dietary Evaluation: Recommendations by RD: Increase Calorie Intake, Protein supplementation Comments: REC continue w/regular diet, honor food preferences, and provide snacks as requested REC Ensure (vanilla) TID Expected Outcomes/Goals: PO intake to meet >75% est needs Malnutrition Findings: Food and Nutrition Intake (Mod: <75% est energy req 7days Weight Status: Appropriate YEE CHANEL MD Aug 03, 2018 07:53
[2018-08-03 07:55] VITALS: BP 104/58
[2018-08-03] MEDS: oxyCODONE/APAP 5/325 1 TAB TABLET PO PRN ×4 (08:02→22:40)
[2018-08-03] MEDS: LUBIPROSTONE 8 MCG CAPSULE PO SCH ×2 (08:02→16:45)
[2018-08-03] MEDS: KETOROLAC 15 MG/ML VIAL. IV PRN (08:04)
--- NOTE | 2018-08-03 08:51 | PDOC ---
PULMONARY PROGRESS NOTES Subjective no sob, no cough, has discomfort in ct site. Vitals Vital Signs Date Time Temp Pulse Resp B/P (MAP) Pulse Ox O2 Delivery O2 Flow Rate FiO2 08/03/18 08:02 18 99 Room Air 08/03/18 07:55 98.2 73 104/58 (73) 98.2 08/02/18 18:08 2.0 ROS: No Nausea, No Abdominal Pain General: Alert, No acute distress HEENT: Other (nc at perrl ) Lungs: Other (decrease bs, l ct) Cardiovascular: S1, S2 Abdomen: Soft, Non-tender Neuro Exam: Alert, Oriented Extremities: No Edema Skin: Warm Medications Active Scripts Medications Dose Route/Sig Max Daily Dose Days Date Category Ibuprofen 400 Mg Tablet 400 Mg PO PRN Q6HRS PRN 07/29/18 Reported Comments reviewed cxr l ptx smaller Impression . 1. Spontaneous left-sided pneumothorax in a patient who was a smoker and that is the likely risk factor. 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 History of tobaccoism. Plan . 1. ct was changed over the wire on 08/02 now functioning, Continue chest tube, suction to -30, cxr reviewed, ptx smaller, has leak 2. Follow daily chest x-rays. 3. ct reviewed 4. Outpatient alpha 1 antitrypsin level. Not available in-house. 5. P.r.n. bronchodilators. 6. Pain control. 7. Discussed with RN/ PT ZHANG NEFF MD Aug 03, 2018 08:51
--- NOTE | 2018-08-03 08:59 | RAD ---
AP chest. HISTORY: Pneumothorax AP view was taken of the chest. There is a small left apical pneumothorax with a mild improvement. There is a 6 mildly different position to the chest tube on today's study. No new infiltrates are noted. Heart is normal in size. IMPRESSION: 1. Persistent left apical pneumothorax with mild improvement. Electronically signed by: Rick Sr MD (08/03/2018 8:57 AM) [facility]
[2018-08-03 11:10] VITALS: BP 112/62
[2018-08-03 15:36] VITALS: BP 122/64
--- NOTE | 2018-08-03 15:48 | RAD ---
EXAM: Chest, single view. HISTORY: Chest tube placement. COMPARISON: Chest radiograph obtained on the same date. FINDINGS: A frontal view of the chest is obtained. There has been repositioning of a left pleural drainage catheter with the tip overlying the aortic knob. There has been no change in a small to moderate pneumothorax. There is mild right apical emphysematous change. There is no consolidation. The heart is normal in size. IMPRESSION: 1. Repositioning of a left pleural drainage catheter. There has been no change in a small to moderate left pneumothorax. 2. Suspected apical predominant emphysema. Electronically signed by: Karlee Duckworth MD (08/03/2018 3:45 PM) [id number]
[2018-08-03] MEDS: ENOXAPARIN 40 MG/0.4 ML SYRINGE. SQ SCH (16:45)
[2018-08-03 19:35] VITALS: BP 118/73
[2018-08-03] MEDS: NICOTINE 21MG PATCH. TD PRN (19:50)
[2018-08-03 23:30] VITALS: BP 122/72
[2018-08-04] MEDS: oxyCODONE/APAP 5/325 1 TAB TABLET PO PRN ×5 (03:11→21:48)
[2018-08-04] MEDS: MORPHINE SULFATE 2 MG/ML VIAL. IV PRN (03:11)
[2018-08-04 03:57] VITALS: BP 107/70
[2018-08-04 07:38] VITALS: BP 111/62
--- NOTE | 2018-08-04 07:39 | RAD ---
AP chest. HISTORY: Pneumothorax AP view was taken of the chest. There's been an improvement in the right apical pneumothorax with a tiny residual pneumothorax. The chest tube is now in the right apex. No new infiltrates are noted. Heart is normal in size. There is no pleural effusion. IMPRESSION: 1. Chest tube is now in the right apex. 2. Improved right pneumothorax with tiny apical pneumothorax. 3. No new infiltrates. Electronically signed by: Rick Sr MD (08/04/2018 7:36 AM) [facility]
[2018-08-04] MEDS: LUBIPROSTONE 8 MCG CAPSULE PO SCH ×2 (08:13→17:09)
[2018-08-04] MEDS: NICOTINE 21MG PATCH. TD PRN (08:21)
--- NOTE | 2018-08-04 09:00 | PDOC ---
PULMONARY PROGRESS NOTES Subjective no sob, no cough, had cp yesterday, ct was kinked, corrected and secured by rn Vitals Vital Signs Date Time Temp Pulse Resp B/P (MAP) Pulse Ox O2 Delivery O2 Flow Rate FiO2 08/04/18 08:14 18 98 Room Air 2.0 08/04/18 07:38 97.9 68 111/62 (78) 97.9 ROS: No Nausea, No Abdominal Pain General: Alert, No acute distress HEENT: Other (nc at perrl ) Lungs: Other (decrease bs, l ct) Cardiovascular: S1, S2 Abdomen: Soft, Non-tender Neuro Exam: Alert, Oriented Extremities: No Edema Skin: Warm Medications Active Scripts Medications Dose Route/Sig Max Daily Dose Days Date Category Ibuprofen 400 Mg Tablet 400 Mg PO PRN Q6HRS PRN 07/29/18 Reported Comments reviewed cxr l ptx much smaller Impression . 1. Spontaneous left-sided pneumothorax in a patient who was a smoker and that is the likely risk factor. One should rule out alpha-1 antitrypsin deficiency as an outpatient. no air leak today 2. History of tobaccoism. Plan . 1. ct was changed over the wire on 08/02 now functioning, Continue chest tube, change suction to -20, cxr reviewed, ptx much smaller, no leak today 2. Follow daily chest x-rays. 3. ct reviewed 4. Outpatient alpha 1 antitrypsin level. Not available in-house. 5. P.r.n. bronchodilators. 6. Pain control. 7. lovenox for dvt prophylaxis Discussed with RN/ PT ZHANG NEFF MD Aug 04, 2018 09:00
[2018-08-04 10:34] VITALS: BP 114/70
--- NOTE | 2018-08-04 14:02 | PDOC ---
PROGRESS NOTES Chief Complaint Chief Complaint Spontaneous pneumothorax History of tobacco abuse Counseling done Chest discomfort as a consequence of pneumothorax History of Present Illness History of Present Illness CXR looked worse 08/02/18 - s/p IR replacement of chest tube Continue current care chest tube CT chest D/w IR for repositioning of CT Pain management Further recommendations based on clinical course she complains about anxiety today Vitals Vitals Vital Signs Date Time Temp Pulse Resp B/P (MAP) Pulse Ox O2 Delivery O2 Flow Rate FiO2 08/04/18 12:36 98 Room Air 2.0 08/04/18 10:34 75 17 114/70 (85) 08/04/18 07:38 97.9 97.9 Physical Exam General: Alert, Oriented X3, Cooperative, No acute distress Lungs: Other (decrease bs, l ct) Abdomen: Normal bowel sounds, Soft, No tenderness, No hepatosplenomegaly, No masses Extremities: No clubbing, No cyanosis, No edema, Normal pulses, No tenderness/ swelling Skin: No rashes, No breakdown, No significant lesion Assessment and Plan Assessmemt and Plan Problems Medical Problems: (1) Left-sided chest pain Status: Acute (2) Spontaneous pneumothorax Status: Acute Comment Review of Relevant I have reviewed the following items monik (where applicable) has been applied. Medications Current Medications Ketorolac Tromethamine (Toradol 30mg Vial) 30 mg 1X ONCE IV Last administered on 07/29/18 08:55; Start 07/29/18 at 08:30; Stop 07/29/18 at 08:46; Status DC Cyclobenzaprine HCl (Flexeril) 10 mg 1X ONCE PO Last administered on 07/29/18 08:53; Start 07/29/18 at 08:30; Stop 07/29/18 at 08:46; Status DC Fentanyl Citrate (Fentanyl 2ml Vial) 50 mcg 1X ONCE IV Last administered on 09:15; Start 07/29/18 at 09:00; Stop 07/29/18 at 09:08; Status DC Sodium Chloride 1,000 ml @ 1,000 mls/hr 1X ONCE IV Last administered on 09:00; Start 07/29/18 at 09:00; Stop 07/29/18 at 09:59; Status DC Fentanyl Citrate (Fentanyl 2ml Vial) 50 mcg 1X ONCE IV Last administered on 4/ 8/19at 10:14; Start 07/29/18 at 10:00; Stop 07/29/18 at 10:06; Status DC Ketorolac Tromethamine (Toradol 30mg Vial) 30 mg 1X ONCE IV ; Start 07/29/18 at 11:00; Stop 07/29/18 at 11:03; Status DC Ketorolac Tromethamine (Toradol 15mg Vial) 15 mg PRN Q6HRS PRN IV MILD PAIN Last administered on 08/03/18at 08:04; Start 07/29/18 at 11:00; Stop 08/03/18 at 10:59; Status DC Oxycodone/ Acetaminophen (Percocet 5/325) 1 tab PRN Q4HRS PRN PO PAIN Last administered on 08/04/18at 12:36; Start 07/29/18 at 11:00 Nicotine (Nicoderm Cq 21mg) 1 patch PRN DAILY PRN TD SMOKING CESSATION Last administered on 08/04/18at 08:21; Start 07/29/18 at 11:00 Morphine Sulfate (Morphine Sulfate) 2 mg PRN Q2HR PRN IV MODERATE - SEVERE PAIN Last administered on 08/04/18at 03:11; Start 07/29/18 at 11:00 Labetalol HCl (Normodyne Iv Push) 10 mg PRN Q2HR PRN IVP HYPERTENSION, SEE COMMENTS; Start 07/29/18 at 11:15 Midazolam HCl (Versed) 2 mg STK-MED ONCE .ROUTE ; Start 07/29/18 at 12:36; Stop 07/29/18 at 12:37; Status DC Fentanyl Citrate (Fentanyl 2ml Vial) 100 mcg STK-MED ONCE .ROUTE ; Start at 12:37; Stop 07/29/18 at 12:38; Status DC Flumazenil (Romazicon) 0.5 mg STK-MED ONCE IV ; Start 07/29/18 at 12:37; Stop 07/29/18 at 12:38; Status DC Naloxone HCl (Narcan) 0.4 mg STK-MED ONCE .ROUTE ; Start 07/29/18 at 12:37; Stop 07/29/18 at 12:38; Status DC Lidocaine/Sodium Bicarbonate (Buffered Lidocaine 1%) 3 ml STK-MED ONCE .ROUTE ; Start 07/29/18 at 12:39; Stop 07/29/18 at 12:40; Status DC Fentanyl Citrate (Fentanyl 2ml Vial) 50 mcg 1X ONCE IV Last administered on 07/29/18at 13:15; Start 07/29/18 at 13:15; Stop 07/29/18 at 13:24; Status DC Lidocaine/Sodium Bicarbonate (Buffered Lidocaine 1%) 9 ml 1X ONCE IJ Last administered on 07/29/18 13:19; Start 07/29/18 at 13:30; Stop 07/29/18 at 13:31; Status DC Sennosides (Senna) 17.2 mg 1X ONCE PO Last administered on 08/01/18 17:20; Start 08/01/18 at 17:30; Stop 08/01/18 at 17:31; Status DC Polyethylene Glycol (miraLAX PACKET) 17 gm 1X ONCE PO Last administered on 17:20; Start 08/01/18 at 17:30; Stop 08/01/18 at 17:31; Status DC Lubiprostone (Amitiza) 8 mcg BIDWMEALS PO Last administered on 08/04/18at 08:13 ; Start 08/02/18 at 17:00 Acetaminophen (Tylenol) 650 mg PRN Q6HRS PRN PO headache Last administered on 11:30; Start 08/02/18 at 11:00 Lidocaine/Sodium Bicarbonate (Buffered Lidocaine 1%) 3 ml STK-MED ONCE .ROUTE ; Start 08/02/18 at 14:23; Stop 08/02/18 at 14:24; Status DC Midazolam HCl (Versed) 2 mg STK-MED ONCE .ROUTE ; Start 08/02/18 at 14:43; Stop 08/02/18 at 14:44; Status DC Fentanyl Citrate (Fentanyl 2ml Vial) 100 mcg STK-MED ONCE .ROUTE ; Start at 14:43; Stop 08/02/18 at 14:44; Status DC Lidocaine/Sodium Bicarbonate (Buffered Lidocaine 1%) 3 ml 1X ONCE IJ Last administered on 08/02/18at 15:09; Start 08/02/18 at 15:15; Stop 08/02/18 at 15:16 ; Status DC Midazolam HCl (Versed) 2 mg 1X ONCE IV Last administered on 08/02/18at 15:09; Start 08/02/18 at 15:15; Stop 08/02/18 at 15:16; Status DC Fentanyl Citrate (Fentanyl 2ml Vial) 100 mcg 1X ONCE IV Last administered on at 15:09; Start 08/02/18 at 15:15; Stop 08/02/18 at 15:16; Status DC Enoxaparin Sodium (Lovenox 40mg Syringe) 40 mg Q24H SQ Last administered on at 16:45; Start 08/03/18 at 16:00 Active Scripts Active Reported Ibuprofen 400 Mg Tablet 400 Mg PO PRN Q6HRS PRN Vitals/I & O Vital Sign - Last 24 Hours 08/03/18 08/03/18 08/03/18 08/03/18 15:36 18:33 19:27 19:35 Temp 98.0 97.8 98.0 97.8 Pulse 76 83 Resp 18 20 18 B/P (MAP) 122/64 (83) 118/73 (88) Pulse Ox 98 98 98 98 O2 Delivery Room Air Room Air Room Air Room Air O2 Flow Rate 2.0 08/03/18 08/03/18 08/03/18 08/03/18 19:41 21:30 22:40 23:30 Temp 98.0 98.0 Pulse 78 Resp 18 20 20 B/P (MAP) 122/72 (89) Pulse Ox 98 98 99 O2 Delivery Room Air Room Air Room Air Room Air 08/04/18 08/04/18 08/04/18 08/04/18 03:11 03:11 03:41 03:57 Temp 98.0 98.0 Pulse 73 Resp 20 20 20 20 B/P (MAP) 107/70 (82) Pulse Ox 96 96 96 97 O2 Delivery Room Air Room Air Room Air Room Air 08/04/18 08/04/18 08/04/18 08/04/18 07:31 07:38 08:14 09:17 Temp 97.9 97.9 Pulse 68 Resp 18 18 18 B/P (MAP) 111/62 (78) Pulse Ox 98 98 98 O2 Delivery Room Air Room Air Room Air Room Air O2 Flow Rate 2.0 2.0 08/04/18 08/04/18 10:34 12:36 Pulse 75 Resp 17 B/P (MAP) 114/70 (85) Pulse Ox 98 98 O2 Delivery Room Air Room Air O2 Flow Rate 2.0 Intake and Output 08/03/18 08/03/18 08/04/18 14:59 22:59 06:59 Intake Total 740 ml 300 ml 60 ml Output Total 1200 ml 810 ml 900 ml Balance -460 ml -510 ml -840 ml Nutrition Consultation Dietary Evaluation: Recommendations by RD: Increase Calorie Intake, Protein supplementation Comments: REC continue w/regular diet, honor food preferences, and provide snacks as requested REC Ensure (vanilla) TID Expected Outcomes/Goals: PO intake to meet >75% est needs Malnutrition Findings: Food and Nutrition Intake (Mod: <75% est energy req 7days Weight Status: Appropriate REEMA HEATON MD Aug 04, 2018 14:02
[2018-08-04] MEDS ORDERED: diazePAM 2 MG TABLET PO PRN (14:15)
[2018-08-04] MEDS ORDERED: diazePAM 2 MG TABLET PO ONE (14:15)
[2018-08-04 14:22] VITALS: BP 122/74
[2018-08-04] MEDS: ENOXAPARIN 40 MG/0.4 ML SYRINGE. SQ SCH (17:10)
[2018-08-04 19:25] VITALS: BP 137/83
[2018-08-04 23:10] VITALS: BP 115/74
[2018-08-05 03:15] VITALS: BP 114/68
[2018-08-05 07:43] VITALS: BP 109/61
--- NOTE | 2018-08-05 08:03 | PDOC ---
PROGRESS NOTES Chief Complaint Chief Complaint Spontaneous pneumothorax History of tobacco abuse Counseling done Chest discomfort as a consequence of pneumothorax History of Present Illness History of Present Illness CXR looked worse 08/02/18 - s/p IR replacement of chest tube Today c/o constipation. she complains about anxiety today. Chest pain improving , no SOB, no air leak, still on wall suction Plan: Bowel regimen Continue current care chest tube CT chest D/w IR for repositioning of CT Pain management Further recommendations based on clinical course Vitals Vitals Vital Signs Date Time Temp Pulse Resp B/P (MAP) Pulse Ox O2 Delivery O2 Flow Rate FiO2 08/05/18 07:43 98.3 66 18 109/61 (77) 95 Room Air 98.3 08/04/18 18:54 2.0 Physical Exam General: Alert, Oriented X3, Cooperative, No acute distress Lungs: Other (decrease bs, l ct) Abdomen: Normal bowel sounds, Soft, No tenderness, No hepatosplenomegaly, No masses Extremities: No clubbing, No cyanosis, No edema, Normal pulses, No tenderness/ swelling Skin: No rashes, No breakdown, No significant lesion Assessment and Plan Assessmemt and Plan Problems Medical Problems: (1) Left-sided chest pain Status: Acute (2) Spontaneous pneumothorax Status: Acute Comment Review of Relevant I have reviewed the following items monik (where applicable) has been applied. Medications Current Medications Ketorolac Tromethamine (Toradol 30mg Vial) 30 mg 1X ONCE IV Last administered on 07/29/18 08:55; Start 07/29/18 at 08:30; Stop 07/29/18 at 08:46; Status DC Cyclobenzaprine HCl (Flexeril) 10 mg 1X ONCE PO Last administered on 07/29/18 08:53; Start 07/29/18 at 08:30; Stop 07/29/18 at 08:46; Status DC Fentanyl Citrate (Fentanyl 2ml Vial) 50 mcg 1X ONCE IV Last administered on 09:15; Start 07/29/18 at 09:00; Stop 07/29/18 at 09:08; Status DC Sodium Chloride 1,000 ml @ 1,000 mls/hr 1X ONCE IV Last administered on 09:00; Start 07/29/18 at 09:00; Stop 07/29/18 at 09:59; Status DC Fentanyl Citrate (Fentanyl 2ml Vial) 50 mcg 1X ONCE IV Last administered on 07/29/18at 10:14; Start 07/29/18 at 10:00; Stop 07/29/18 at 10:06; Status DC Ketorolac Tromethamine (Toradol 30mg Vial) 30 mg 1X ONCE IV ; Start 07/29/18 at 11:00; Stop 07/29/18 at 11:03; Status DC Ketorolac Tromethamine (Toradol 15mg Vial) 15 mg PRN Q6HRS PRN IV MILD PAIN Last administered on 08/03/18at 08:04; Start 07/29/18 at 11:00; Stop 08/03/18 at 10:59; Status DC Oxycodone/ Acetaminophen (Percocet 5/325) 1 tab PRN Q4HRS PRN PO PAIN Last administered on 08/04/18at 21:48; Start 07/29/18 at 11:00 Nicotine (Nicoderm Cq 21mg) 1 patch PRN DAILY PRN TD SMOKING CESSATION Last administered on 08/04/18at 08:21; Start 07/29/18 at 11:00 Morphine Sulfate (Morphine Sulfate) 2 mg PRN Q2HR PRN IV MODERATE - SEVERE PAIN Last administered on 08/04/18at 03:11; Start 07/29/18 at 11:00 Labetalol HCl (Normodyne Iv Push) 10 mg PRN Q2HR PRN IVP HYPERTENSION, SEE COMMENTS; Start 07/29/18 at 11:15 Midazolam HCl (Versed) 2 mg STK-MED ONCE .ROUTE ; Start 07/29/18 at 12:36; Stop 07/29/18 at 12:37; Status DC Fentanyl Citrate (Fentanyl 2ml Vial) 100 mcg STK-MED ONCE .ROUTE ; Start at 12:37; Stop 07/29/18 at 12:38; Status DC Flumazenil (Romazicon) 0.5 mg STK-MED ONCE IV ; Start 07/29/18 at 12:37; Stop 07/29/18 at 12:38; Status DC Naloxone HCl (Narcan) 0.4 mg STK-MED ONCE .ROUTE ; Start 07/29/18 at 12:37; Stop 07/29/18 at 12:38; Status DC Lidocaine/Sodium Bicarbonate (Buffered Lidocaine 1%) 3 ml STK-MED ONCE .ROUTE ; Start 07/29/18 at 12:39; Stop 07/29/18 at 12:40; Status DC Fentanyl Citrate (Fentanyl 2ml Vial) 50 mcg 1X ONCE IV Last administered on 07/29/18at 13:15; Start 07/29/18 at 13:15; Stop 07/29/18 at 13:24; Status DC Lidocaine/Sodium Bicarbonate (Buffered Lidocaine 1%) 9 ml 1X ONCE IJ Last administered on 07/29/18at 13:19; Start 07/29/18 at 13:30; Stop 07/29/18 at 13:31; Status DC Sennosides (Senna) 17.2 mg 1X ONCE PO Last administered on 08/01/18at 17:20; Start 08/01/18 at 17:30; Stop 08/01/18 at 17:31; Status DC Polyethylene Glycol (miraLAX PACKET) 17 gm 1X ONCE PO Last administered on 03/11at 17:20; Start 08/01/18 at 17:30; Stop 08/01/18 at 17:31; Status DC Lubiprostone (Amitiza) 8 mcg BIDWMEALS PO Last administered on 08/04/18at 17:09 ; Start 08/02/18 at 17:00 Acetaminophen (Tylenol) 650 mg PRN Q6HRS PRN PO headache Last administered on at 11:30; Start 08/02/18 at 11:00 Lidocaine/Sodium Bicarbonate (Buffered Lidocaine 1%) 3 ml STK-MED ONCE .ROUTE ; Start 08/02/18 at 14:23; Stop 08/02/18 at 14:24; Status DC Midazolam HCl (Versed) 2 mg STK-MED ONCE .ROUTE ; Start 08/02/18 at 14:43; Stop 08/02/18 at 14:44; Status DC Fentanyl Citrate (Fentanyl 2ml Vial) 100 mcg STK-MED ONCE .ROUTE ; Start at 14:43; Stop 08/02/18 at 14:44; Status DC Lidocaine/Sodium Bicarbonate (Buffered Lidocaine 1%) 3 ml 1X ONCE IJ Last administered on 08/02/18at 15:09; Start 08/02/18 at 15:15; Stop 08/02/18 at 15:16 ; Status DC Midazolam HCl (Versed) 2 mg 1X ONCE IV Last administered on 08/02/18at 15:09; Start 08/02/18 at 15:15; Stop 08/02/18 at 15:16; Status DC Fentanyl Citrate (Fentanyl 2ml Vial) 100 mcg 1X ONCE IV Last administered on at 15:09; Start 08/02/18 at 15:15; Stop 08/02/18 at 15:16; Status DC Enoxaparin Sodium (Lovenox 40mg Syringe) 40 mg Q24H SQ Last administered on at 17:10; Start 08/03/18 at 16:00 Diazepam (Valium) 2 mg 1X ONCE PO Last administered on 08/04/18at 14:22; Start 08/04/18 at 14:15; Stop 08/04/18 at 14:16; Status DC Diazepam (Valium) 2 mg PRN Q8HRS PRN PO ANXIETY Last administered on 08/04/18at 21:09; Start 08/04/18 at 14:15 Active Scripts Active Reported Ibuprofen 400 Mg Tablet 400 Mg PO PRN Q6HRS PRN Vitals/I & O Vital Sign - Last 24 Hours 08/04/18 08/04/18 08/04/18 08/04/18 08:14 10:34 12:36 14:22 Temp 98.0 98.0 Pulse 75 86 Resp 18 17 17 B/P (MAP) 114/70 (85) 122/74 (90) Pulse Ox 98 98 98 98 O2 Delivery Room Air Room Air Room Air Room Air O2 Flow Rate 2.0 2.0 08/04/18 08/04/18 08/04/18 08/04/18 17:54 18:54 19:25 19:56 Temp 98.2 98.2 Pulse 80 Resp 18 18 B/P (MAP) 137/83 (101) Pulse Ox 98 98 99 O2 Delivery Room Air Room Air Room Air Room Air O2 Flow Rate 2.0 08/04/18 08/04/18 08/04/18 08/05/18 21:48 22:48 23:10 03:15 Temp 98.0 97.6 98.0 97.6 Pulse 77 70 Resp 20 20 18 18 B/P (MAP) 115/74 (88) 114/68 (83) Pulse Ox 99 96 O2 Delivery Room Air Room Air Room Air 08/05/18 07:43 Temp 98.3 98.3 Pulse 66 Resp 18 B/P (MAP) 109/61 (77) Pulse Ox 95 O2 Delivery Room Air Intake and Output 08/04/18 08/04/18 08/05/18 15:00 23:00 07:00 Intake Total 900 ml Output Total 700 ml 2158 ml 950 ml Balance -700 ml -2158 ml -50 ml Nutrition Consultation Dietary Evaluation: Recommendations by RD: Increase Calorie Intake, Protein supplementation Comments: REC continue w/regular diet, honor food preferences, and provide snacks as requested REC Ensure (vanilla) TID Expected Outcomes/Goals: PO intake to meet >75% est needs Malnutrition Findings: Food and Nutrition Intake (Mod: <75% est energy req 7days Weight Status: Appropriate YEE CHANEL MD Aug 05, 2018 08:03
[2018-08-05 08:05] LABS: BASO # 0.1 x10^3/uL (0.0-0.2); BASO % 1 % (0-3); EOS # 0.3 x10^3/uL (0.0-0.7); EOS % 3 % (0-3); HEMATOCRIT 37.2 % (36.0-47.0); HEMOGLOBIN 12.2 g/dL (12.0-15.5); LYMPH # 3.3 x10^3/uL (1.0-4.8); LYMPH % 31 % (24-48); MEAN CORPUSCULAR HEMOGLOBIN 30 pg (25-35); MEAN CORPUSCULAR HGB CONC 33 g/dL (31-37); MEAN CORPUSCULAR VOLUME 91 fL (79-100); MONO # 1.2 x10^3/uL (0.0-1.1); MONO % 11 % (0-9); NEUT # 5.8 x10^3uL (1.8-7.7); NEUT % 54 % (31-73); PLATELET COUNT 239 x10^3/uL (140-400); RED CELL DISTRIBUTION WIDTH 13.6 % (11.5-14.5); WHITE BLOOD COUNT 10.8 x10^3/uL (4.0-11.0)
[2018-08-05] MEDS: oxyCODONE/APAP 5/325 1 TAB TABLET PO PRN ×4 (08:06→20:40)
[2018-08-05] MEDS: LUBIPROSTONE 8 MCG CAPSULE PO SCH ×2 (08:06→17:28)
[2018-08-05 08:08] LABS: ALBUMIN 3.3 g/dL (3.4-5.0); ALBUMIN/GLOBULIN RATIO 1.2 (1.0-1.7); CALCIUM 8.7 mg/dL (8.5-10.1); CREATININE 0.5 mg/dL (0.6-1.0); GFR 138.1; POTASSIUM 4.2 mmol/L (3.5-5.1); TOTAL BILIRUBIN 0.2 mg/dL (0.2-1.0)
--- NOTE | 2018-08-05 08:11 | RAD ---
CHEST AP ONLY History: Pneumothorax Comparison: August 04, 2018 Findings: Single view of the chest is submitted. There is again pigtail catheter with the tip terminating closer to the left lung apex. There is trace residual left apical pneumothorax unchanged in size. There is no lobar consolidation or pleural fluid. Heart size is stable. Impression: 1. There is again pigtail catheter with tip terminating near the left lung apex, trace residual left apical pneumothorax stable. Electronically signed by: Segundo Heaton MD (08/05/2018 8:08 AM) [email or web address]
[2018-08-05 10:46] VITALS: BP 101/55
--- NOTE | 2018-08-05 12:38 | PDOC ---
PULMONARY PROGRESS NOTES Subjective no sob, no cough, Vitals Vital Signs Date Time Temp Pulse Resp B/P (MAP) Pulse Ox O2 Delivery O2 Flow Rate FiO2 08/05/18 10:46 99.1 97 18 101/55 (70) 97 Room Air 99.1 08/04/18 18:54 2.0 ROS: No Nausea, No Abdominal Pain General: Alert, No acute distress HEENT: Other (nc at perrl ) Lungs: Other (decrease bs, l ct) Cardiovascular: S1, S2 Abdomen: Soft, Non-tender Neuro Exam: Alert, Oriented Extremities: No Edema Skin: Warm Labs Laboratory Tests Test 08/05/18 04:00 White Blood Count 10.8 x10^3/uL (4.0-11.0) Red Blood Count 4.10 x10^6/uL (3.50-5.40) Hemoglobin 12.2 g/dL (12.0-15.5) Hematocrit 37.2 % (36.0-47.0) Mean Corpuscular Volume 91 fL (79-100) Mean Corpuscular Hemoglobin 30 pg (25-35) Mean Corpuscular Hemoglobin Concent 33 g/dL (31-37) Red Cell Distribution Width 13.6 % (11.5-14.5) Platelet Count 239 x10^3/uL (140-400) Neutrophils (%) (Auto) 54 % (31-73) Lymphocytes (%) (Auto) 31 % (24-48) Monocytes (%) (Auto) 11 % (0-9) Eosinophils (%) (Auto) 3 % (0-3) Basophils (%) (Auto) 1 % (0-3) Neutrophils # (Auto) 5.8 x10^3uL (1.8-7.7) Lymphocytes # (Auto) 3.3 x10^3/uL (1.0-4.8) Monocytes # (Auto) 1.2 x10^3/uL (0.0-1.1) Eosinophils # (Auto) 0.3 x10^3/uL (0.0-0.7) Basophils # (Auto) 0.1 x10^3/uL (0.0-0.2) Sodium Level 137 mmol/L (136-145) Potassium Level 4.2 mmol/L (3.5-5.1) Chloride Level 103 mmol/L (98-107) Carbon Dioxide Level 25 mmol/L (21-32) Anion Gap 9 (6-14) Blood Urea Nitrogen 11 mg/dL (7-20) Creatinine 0.5 mg/dL (0.6-1.0) Estimated GFR (Cockcroft-Gault) 138.1 BUN/Creatinine Ratio 22 (6-20) Glucose Level 90 mg/dL (70-99) Calcium Level 8.7 mg/dL (8.5-10.1) Total Bilirubin 0.2 mg/dL (0.2-1.0) Aspartate Amino Transf (AST/SGOT) 16 U/L (15-37) Alanine Aminotransferase (ALT/SGPT) 20 U/L (14-59) Alkaline Phosphatase 77 U/L (46-116) Total Protein 6.0 g/dL (6.4-8.2) Albumin 3.3 g/dL (3.4-5.0) Albumin/Globulin Ratio 1.2 (1.0-1.7) Laboratory Tests Test 08/05/18 04:00 White Blood Count 10.8 x10^3/uL (4.0-11.0) Red Blood Count 4.10 x10^6/uL (3.50-5.40) Hemoglobin 12.2 g/dL (12.0-15.5) Hematocrit 37.2 % (36.0-47.0) Mean Corpuscular Volume 91 fL (79-100) Mean Corpuscular Hemoglobin 30 pg (25-35) Mean Corpuscular Hemoglobin Concent 33 g/dL (31-37) Red Cell Distribution Width 13.6 % (11.5-14.5) Platelet Count 239 x10^3/uL (140-400) Neutrophils (%) (Auto) 54 % (31-73) Lymphocytes (%) (Auto) 31 % (24-48) Monocytes (%) (Auto) 11 % (0-9) Eosinophils (%) (Auto) 3 % (0-3) Basophils (%) (Auto) 1 % (0-3) Neutrophils # (Auto) 5.8 x10^3uL (1.8-7.7) Lymphocytes # (Auto) 3.3 x10^3/uL (1.0-4.8) Monocytes # (Auto) 1.2 x10^3/uL (0.0-1.1) Eosinophils # (Auto) 0.3 x10^3/uL (0.0-0.7) Basophils # (Auto) 0.1 x10^3/uL (0.0-0.2) Sodium Level 137 mmol/L (136-145) Potassium Level 4.2 mmol/L (3.5-5.1) Chloride Level 103 mmol/L (98-107) Carbon Dioxide Level 25 mmol/L (21-32) Anion Gap 9 (6-14) Blood Urea Nitrogen 11 mg/dL (7-20) Creatinine 0.5 mg/dL (0.6-1.0) Estimated GFR (Cockcroft-Gault) 138.1 BUN/Creatinine Ratio 22 (6-20) Glucose Level 90 mg/dL (70-99) Calcium Level 8.7 mg/dL (8.5-10.1) Total Bilirubin 0.2 mg/dL (0.2-1.0) Aspartate Amino Transf (AST/SGOT) 16 U/L (15-37) Alanine Aminotransferase (ALT/SGPT) 20 U/L (14-59) Alkaline Phosphatase 77 U/L (46-116) Total Protein 6.0 g/dL (6.4-8.2) Albumin 3.3 g/dL (3.4-5.0) Albumin/Globulin Ratio 1.2 (1.0-1.7) Medications Active Scripts Medications Dose Route/Sig Max Daily Dose Days Date Category Ibuprofen 400 Mg Tablet 400 Mg PO PRN Q6HRS PRN 07/29/18 Reported Comments reviewed cxr 08/05 l ptx much smaller Impression . 1. Spontaneous left-sided pneumothorax in a patient who was a smoker and that is the likely risk factor. One should rule out alpha-1 antitrypsin deficiency as an outpatient. no air leak today 2. History of tobaccoism. Plan . 1. ct was changed over the wire on 08/02 now functioning, Continue chest tube, change suction to -20, cxr reviewed, ptx much smaller, no leak today 2. Follow daily chest x-rays.If PTX, resolved, will clamp ct in am. If no improvement, consider VATS for apical bleb 3. ct reviewed 4. Outpatient alpha 1 antitrypsin level. Not available in-house. 5. P.r.n. bronchodilators. 6. Pain control. 7. lovenox for dvt prophylaxis Discussed with RN/ PT ALESIA HERNANDEZ MD Aug 05, 2018 12:38
--- NOTE | 2018-08-05 12:52 | NUR ---
SS following up with discharge planning. SS reviewed pt chart. [facility] is following for self pay status. Pt is from home and is currently on room air. No discharge needs noted at this time. SS will continue to follow for pending discharge needs.
[2018-08-05] MEDS ORDERED: SENNOSIDES/DOCUSATE 8.6/50MG TABLET. PO PRN (13:00)
[2018-08-05] MEDS ORDERED: POLYETHYLENE GLYCOL 3350 17 GM PACKET. PO PRN (13:00)
[2018-08-05] MEDS: NICOTINE 21MG PATCH. TD PRN (13:48)
[2018-08-05] MEDS: ENOXAPARIN 40 MG/0.4 ML SYRINGE. SQ SCH (13:48)
[2018-08-05 14:47] VITALS: BP 108/59
[2018-08-05] MEDS ORDERED: LORazepam 0.5 MG TABLET PO PRN (18:30)
[2018-08-05] MEDS ORDERED: ZOLPIDEM 5 MG TABLET. PO PRN (18:30)
[2018-08-05 19:30] VITALS: BP 108/58
[2018-08-05 23:00] VITALS: BP 110/64
[2018-08-06 03:10] VITALS: BP 97/56
[2018-08-06 07:00] VITALS: BP 101/60
--- NOTE | 2018-08-06 07:46 | PDOC ---
PROGRESS NOTES Chief Complaint Chief Complaint Spontaneous pneumothorax History of tobacco abuse Counseling done Chest discomfort as a consequence of pneumothorax History of Present Illness History of Present Illness CXR looked worse 08/02/18 - s/p IR replacement of chest tube Constipation resolved. Worried about her chest tube kinking. Is clamped currently with her Chest pain improving, no SOB, no air leak Plan: Bowel regimen Continue current care chest tube Pain management Further recommendations based on clinical course Likely can d/c chest tube tomorrow per pulm and possibly d/c home after Vitals Vitals Vital Signs Date Time Temp Pulse Resp B/P (MAP) Pulse Ox O2 Delivery O2 Flow Rate FiO2 08/06/18 03:10 98.1 72 18 97/56 (70) 98 Room Air 98.1 Physical Exam General: Alert, Oriented X3, Cooperative, No acute distress Lungs: Other (decrease bs, l ct) Abdomen: Normal bowel sounds, Soft, No tenderness, No hepatosplenomegaly, No masses Extremities: No clubbing, No cyanosis, No edema, Normal pulses, No tenderness/ swelling Skin: No rashes, No breakdown, No significant lesion Assessment and Plan Assessmemt and Plan Problems Medical Problems: (1) Left-sided chest pain Status: Acute (2) Spontaneous pneumothorax Status: Acute Comment Review of Relevant I have reviewed the following items monik (where applicable) has been applied. Labs Laboratory Tests Test 08/05/18 04:00 White Blood Count 10.8 x10^3/uL (4.0-11.0) Red Blood Count 4.10 x10^6/uL (3.50-5.40) Hemoglobin 12.2 g/dL (12.0-15.5) Hematocrit 37.2 % (36.0-47.0) Mean Corpuscular Volume 91 fL (79-100) Mean Corpuscular Hemoglobin 30 pg (25-35) Mean Corpuscular Hemoglobin Concent 33 g/dL (31-37) Red Cell Distribution Width 13.6 % (11.5-14.5) Platelet Count 239 x10^3/uL (140-400) Neutrophils (%) (Auto) 54 % (31-73) Lymphocytes (%) (Auto) 31 % (24-48) Monocytes (%) (Auto) 11 % (0-9) Eosinophils (%) (Auto) 3 % (0-3) Basophils (%) (Auto) 1 % (0-3) Neutrophils # (Auto) 5.8 x10^3uL (1.8-7.7) Lymphocytes # (Auto) 3.3 x10^3/uL (1.0-4.8) Monocytes # (Auto) 1.2 x10^3/uL (0.0-1.1) Eosinophils # (Auto) 0.3 x10^3/uL (0.0-0.7) Basophils # (Auto) 0.1 x10^3/uL (0.0-0.2) Sodium Level 137 mmol/L (136-145) Potassium Level 4.2 mmol/L (3.5-5.1) Chloride Level 103 mmol/L (98-107) Carbon Dioxide Level 25 mmol/L (21-32) Anion Gap 9 (6-14) Blood Urea Nitrogen 11 mg/dL (7-20) Creatinine 0.5 mg/dL (0.6-1.0) Estimated GFR (Cockcroft-Gault) 138.1 BUN/Creatinine Ratio 22 (6-20) Glucose Level 90 mg/dL (70-99) Calcium Level 8.7 mg/dL (8.5-10.1) Total Bilirubin 0.2 mg/dL (0.2-1.0) Aspartate Amino Transf (AST/SGOT) 16 U/L (15-37) Alanine Aminotransferase (ALT/SGPT) 20 U/L (14-59) Alkaline Phosphatase 77 U/L (46-116) Total Protein 6.0 g/dL (6.4-8.2) Albumin 3.3 g/dL (3.4-5.0) Albumin/Globulin Ratio 1.2 (1.0-1.7) Medications Current Medications Ketorolac Tromethamine (Toradol 30mg Vial) 30 mg 1X ONCE IV Last administered on 07/29/18at 08:55; Start 07/29/18 at 08:30; Stop 07/29/18 at 08:46; Status DC Cyclobenzaprine HCl (Flexeril) 10 mg 1X ONCE PO Last administered on 07/29/18at 08:53; Start 07/29/18 at 08:30; Stop 07/29/18 at 08:46; Status DC Fentanyl Citrate (Fentanyl 2ml Vial) 50 mcg 1X ONCE IV Last administered on 07/29/18at 09:15; Start 07/29/18 at 09:00; Stop 07/29/18 at 09:08; Status DC Sodium Chloride 1,000 ml @ 1,000 mls/hr 1X ONCE IV Last administered on at 09:00; Start 07/29/18 at 09:00; Stop 07/29/18 at 09:59; Status DC Fentanyl Citrate (Fentanyl 2ml Vial) 50 mcg 1X ONCE IV Last administered on 07/29/18at 10:14; Start 07/29/18 at 10:00; Stop 07/29/18 at 10:06; Status DC Ketorolac Tromethamine (Toradol 30mg Vial) 30 mg 1X ONCE IV ; Start 07/29/18 at 11:00; Stop 07/29/18 at 11:03; Status DC Ketorolac Tromethamine (Toradol 15mg Vial) 15 mg PRN Q6HRS PRN IV MILD PAIN Last administered on 08/03/18at 08:04; Start 07/29/18 at 11:00; Stop 08/03/18 at 10:59; Status DC Oxycodone/ Acetaminophen (Percocet 5/325) 1 tab PRN Q4HRS PRN PO PAIN Last administered on 08/05/18at 20:40; Start 07/29/18 at 11:00 Nicotine (Nicoderm Cq 21mg) 1 patch PRN DAILY PRN TD SMOKING CESSATION Last administered on 08/05/18at 13:48; Start 07/29/18 at 11:00 Morphine Sulfate (Morphine Sulfate) 2 mg PRN Q2HR PRN IV MODERATE - SEVERE PAIN Last administered on 08/04/18at 03:11; Start 07/29/18 at 11:00 Labetalol HCl (Normodyne Iv Push) 10 mg PRN Q2HR PRN IVP HYPERTENSION, SEE COMMENTS; Start 07/29/18 at 11:15 Midazolam HCl (Versed) 2 mg STK-MED ONCE .ROUTE ; Start 07/29/18 at 12:36; Stop 07/29/18 at 12:37; Status DC Fentanyl Citrate (Fentanyl 2ml Vial) 100 mcg STK-MED ONCE .ROUTE ; Start at 12:37; Stop 07/29/18 at 12:38; Status DC Flumazenil (Romazicon) 0.5 mg STK-MED ONCE IV ; Start 07/29/18 at 12:37; Stop 07/29/18 at 12:38; Status DC Naloxone HCl (Narcan) 0.4 mg STK-MED ONCE .ROUTE ; Start 07/29/18 at 12:37; Stop 07/29/18 at 12:38; Status DC Lidocaine/Sodium Bicarbonate (Buffered Lidocaine 1%) 3 ml STK-MED ONCE .ROUTE ; Start 07/29/18 at 12:39; Stop 07/29/18 at 12:40; Status DC Fentanyl Citrate (Fentanyl 2ml Vial) 50 mcg 1X ONCE IV Last administered on 07/29/18at 13:15; Start 07/29/18 at 13:15; Stop 07/29/18 at 13:24; Status DC Lidocaine/Sodium Bicarbonate (Buffered Lidocaine 1%) 9 ml 1X ONCE IJ Last administered on 07/29/18at 13:19; Start 07/29/18 at 13:30; Stop 07/29/18 at 13:31; Status DC Sennosides (Senna) 17.2 mg 1X ONCE PO Last administered on 08/01/18at 17:20; Start 08/01/18 at 17:30; Stop 08/01/18 at 17:31; Status DC Polyethylene Glycol (miraLAX PACKET) 17 gm 1X ONCE PO Last administered on 03/11at 17:20; Start 08/01/18 at 17:30; Stop 08/01/18 at 17:31; Status DC Lubiprostone (Amitiza) 8 mcg BIDWMEALS PO Last administered on 08/05/18at 17:28 ; Start 08/02/18 at 17:00 Acetaminophen (Tylenol) 650 mg PRN Q6HRS PRN PO headache Last administered on at 11:30; Start 08/02/18 at 11:00 Lidocaine/Sodium Bicarbonate (Buffered Lidocaine 1%) 3 ml STK-MED ONCE .ROUTE ; Start 08/02/18 at 14:23; Stop 08/02/18 at 14:24; Status DC Midazolam HCl (Versed) 2 mg STK-MED ONCE .ROUTE ; Start 08/02/18 at 14:43; Stop 08/02/18 at 14:44; Status DC Fentanyl Citrate (Fentanyl 2ml Vial) 100 mcg STK-MED ONCE .ROUTE ; Start at 14:43; Stop 08/02/18 at 14:44; Status DC Lidocaine/Sodium Bicarbonate (Buffered Lidocaine 1%) 3 ml 1X ONCE IJ Last administered on 08/02/18at 15:09; Start 08/02/18 at 15:15; Stop 08/02/18 at 15:16 ; Status DC Midazolam HCl (Versed) 2 mg 1X ONCE IV Last administered on 08/02/18at 15:09; Start 08/02/18 at 15:15; Stop 08/02/18 at 15:16; Status DC Fentanyl Citrate (Fentanyl 2ml Vial) 100 mcg 1X ONCE IV Last administered on at 15:09; Start 08/02/18 at 15:15; Stop 08/02/18 at 15:16; Status DC Enoxaparin Sodium (Lovenox 40mg Syringe) 40 mg Q24H SQ Last administered on at 13:48; Start 08/03/18 at 16:00 Diazepam (Valium) 2 mg 1X ONCE PO Last administered on 08/04/18at 14:22; Start 08/04/18 at 14:15; Stop 08/04/18 at 14:16; Status DC Diazepam (Valium) 2 mg PRN Q8HRS PRN PO ANXIETY Last administered on 08/04/18at 21:09; Start 08/04/18 at 14:15 Polyethylene Glycol (miraLAX PACKET) 17 gm PRN BID PRN PO CONSTIPATION; Start 08/05/18 at 13:00 Senna/Docusate Sodium (Senna Plus) 2 tab PRN BID PRN PO CONSTIPATION, 2ND CHOICE Last administered on 08/05/18at 13:47; Start 08/05/18 at 13:00 Lorazepam (Ativan) 0.5 mg PRN QHS PRN PO ANXIETY / AGITATION; Start 08/05/18 at 18:30 Zolpidem Tartrate (Ambien) 5 mg PRN QHS PRN PO INSOMNIA; Start 08/05/18 at 18: 30 Active Scripts Active Reported Ibuprofen 400 Mg Tablet 400 Mg PO PRN Q6HRS PRN Vitals/I & O Vital Sign - Last 24 Hours 08/05/18 08/05/18 08/05/18 08/05/18 08:05 10:46 14:47 19:30 Temp 99.1 98.7 98.6 99.1 98.7 98.6 Pulse 97 82 90 Resp 18 18 20 B/P (MAP) 101/55 (70) 108/59 (75) 108/58 (75) Pulse Ox 97 98 97 O2 Delivery Room Air Room Air Room Air Room Air 08/05/18 08/05/18 08/05/18 08/05/18 19:54 20:40 21:40 23:00 Temp 98.2 98.2 Pulse 73 Resp 18 B/P (MAP) 110/64 (79) Pulse Ox 98 O2 Delivery Room Air Room Air Room Air Room Air 08/06/18 03:10 Temp 98.1 98.1 Pulse 72 Resp 18 B/P (MAP) 97/56 (70) Pulse Ox 98 O2 Delivery Room Air Intake and Output 08/05/18 08/05/18 08/06/18 15:00 23:00 07:00 Intake Total 300 ml 900 ml Output Total 875 ml 665 ml Balance -875 ml 300 ml 235 ml Nutrition Consultation Dietary Evaluation: Recommendations by RD: Increase Calorie Intake, Protein supplementation Comments: REC continue w/regular diet, honor food preferences, and provide snacks as requested REC Ensure (vanilla) TID Expected Outcomes/Goals: PO intake to meet >75% est needs Malnutrition Findings: Food and Nutrition Intake (Mod: <75% est energy req 7days Weight Status: Appropriate YEE CHANEL MD Aug 06, 2018 07:46
--- NOTE | 2018-08-06 08:04 | RAD ---
Portable chest, 08/06/2018: HISTORY: Pneumothorax Comparison is made to yesterday's study. The pigtail pleural drain on the left is unchanged. There is minimal bilateral apical scarring. No significant residual pneumothorax is identified. The lungs are clear. The heart size is normal. There is no evidence of pleural fluid. IMPRESSION: No definite residual pneumothorax is identified. Electronically signed by: Lito Archibald MD (08/06/2018 8:01 AM) [facility]
[2018-08-06] MEDS: LUBIPROSTONE 8 MCG CAPSULE PO SCH ×2 (08:58→16:49)
[2018-08-06] MEDS: NICOTINE 21MG PATCH. TD PRN (08:58)
[2018-08-06] MEDS: oxyCODONE/APAP 5/325 1 TAB TABLET PO PRN ×3 (09:01→21:28)
[2018-08-06 11:00] VITALS: BP 105/56
--- NOTE | 2018-08-06 11:29 | PDOC ---
PULMONARY PROGRESS NOTES Subjective no sob, no cough, Vitals Vital Signs Date Time Temp Pulse Resp B/P (MAP) Pulse Ox O2 Delivery O2 Flow Rate FiO2 08/06/18 11:00 97.7 81 18 105/56 (72) 98 Room Air 97.7 ROS: No Nausea, No Abdominal Pain General: Alert, No acute distress HEENT: Other (nc at perrl ) Lungs: Other (decrease bs, l ct) Cardiovascular: S1, S2 Abdomen: Soft, Non-tender Neuro Exam: Alert, Oriented Extremities: No Edema Skin: Warm Labs Laboratory Tests Test 08/05/18 04:00 White Blood Count 10.8 x10^3/uL (4.0-11.0) Red Blood Count 4.10 x10^6/uL (3.50-5.40) Hemoglobin 12.2 g/dL (12.0-15.5) Hematocrit 37.2 % (36.0-47.0) Mean Corpuscular Volume 91 fL (79-100) Mean Corpuscular Hemoglobin 30 pg (25-35) Mean Corpuscular Hemoglobin Concent 33 g/dL (31-37) Red Cell Distribution Width 13.6 % (11.5-14.5) Platelet Count 239 x10^3/uL (140-400) Neutrophils (%) (Auto) 54 % (31-73) Lymphocytes (%) (Auto) 31 % (24-48) Monocytes (%) (Auto) 11 % (0-9) Eosinophils (%) (Auto) 3 % (0-3) Basophils (%) (Auto) 1 % (0-3) Neutrophils # (Auto) 5.8 x10^3uL (1.8-7.7) Lymphocytes # (Auto) 3.3 x10^3/uL (1.0-4.8) Monocytes # (Auto) 1.2 x10^3/uL (0.0-1.1) Eosinophils # (Auto) 0.3 x10^3/uL (0.0-0.7) Basophils # (Auto) 0.1 x10^3/uL (0.0-0.2) Sodium Level 137 mmol/L (136-145) Potassium Level 4.2 mmol/L (3.5-5.1) Chloride Level 103 mmol/L (98-107) Carbon Dioxide Level 25 mmol/L (21-32) Anion Gap 9 (6-14) Blood Urea Nitrogen 11 mg/dL (7-20) Creatinine 0.5 mg/dL (0.6-1.0) Estimated GFR (Cockcroft-Gault) 138.1 BUN/Creatinine Ratio 22 (6-20) Glucose Level 90 mg/dL (70-99) Calcium Level 8.7 mg/dL (8.5-10.1) Total Bilirubin 0.2 mg/dL (0.2-1.0) Aspartate Amino Transf (AST/SGOT) 16 U/L (15-37) Alanine Aminotransferase (ALT/SGPT) 20 U/L (14-59) Alkaline Phosphatase 77 U/L (46-116) Total Protein 6.0 g/dL (6.4-8.2) Albumin 3.3 g/dL (3.4-5.0) Albumin/Globulin Ratio 1.2 (1.0-1.7) Medications Active Scripts Medications Dose Route/Sig Max Daily Dose Days Date Category Ibuprofen 400 Mg Tablet 400 Mg PO PRN Q6HRS PRN 07/29/18 Reported Comments reviewed cxr 08/06 no definite ptx Impression . 1. Spontaneous left-sided pneumothorax in a patient who was a smoker and that is the likely risk factor. One should rule out alpha-1 antitrypsin deficiency as an outpatient. no air leak today 2. History of tobaccoism. Plan . 1. ct was changed over the wire on 08/02 now functioning, Continue chest tube, cxr reviewed, ptx not well seen 2. will clamp ct. . If PTX worsens, consider VATS for apical bleb 3. ct reviewed 4. Outpatient alpha 1 antitrypsin level. Not available in-house. 5. P.r.n. bronchodilators. 6. Pain control. 7. lovenox for dvt prophylaxis Discussed with RN/ PT ALESIA HERNANDEZ MD Aug 06, 2018 11:29
[2018-08-06 15:00] VITALS: BP 100/56
[2018-08-06] MEDS: ENOXAPARIN 40 MG/0.4 ML SYRINGE. SQ SCH (16:49)
[2018-08-06 19:25] VITALS: BP 108/63
[2018-08-06 23:15] VITALS: BP 105/57
[2018-08-06] MEDS: ACETAMINOPHEN 325 MG TABLET. PO PRN (23:19)
[2018-08-07 03:15] VITALS: BP 107/59
[2018-08-07 07:00] VITALS: BP 104/63
[2018-08-07] MEDS: oxyCODONE/APAP 5/325 1 TAB TABLET PO PRN (07:33)
[2018-08-07] MEDS: LUBIPROSTONE 8 MCG CAPSULE PO SCH ×2 (07:34→17:00)
--- NOTE | 2018-08-07 08:08 | PDOC ---
PROGRESS NOTES Chief Complaint Chief Complaint Spontaneous pneumothorax History of tobacco abuse Counseling done Chest discomfort as a consequence of pneumothorax History of Present Illness History of Present Illness CXR looked worse 08/02/18 - s/p IR replacement of chest tube Constipation resolved. Worried about her chest tube kinking. Is clamped currently with her Chest pain improving, no SOB, no air leak Plan: Bowel regimen Plan to d/c chest tube and d/c home Vitals Vitals Vital Signs Date Time Temp Pulse Resp B/P (MAP) Pulse Ox O2 Delivery O2 Flow Rate FiO2 08/07/18 07:33 Room Air 08/07/18 07:00 98.2 74 18 104/63 (77) 98 98.2 Physical Exam General: Alert, Oriented X3, Cooperative, No acute distress Lungs: Other (decrease bs, l ct) Abdomen: Normal bowel sounds, Soft, No tenderness, No hepatosplenomegaly, No masses Extremities: No clubbing, No cyanosis, No edema, Normal pulses, No tenderness/ swelling Skin: No rashes, No breakdown, No significant lesion Assessment and Plan Assessmemt and Plan Problems Medical Problems: (1) Left-sided chest pain Status: Acute (2) Spontaneous pneumothorax Status: Acute Comment Review of Relevant I have reviewed the following items monik (where applicable) has been applied. Medications Current Medications Ketorolac Tromethamine (Toradol 30mg Vial) 30 mg 1X ONCE IV Last administered on 07/29/18at 08:55; Start 07/29/18 at 08:30; Stop 07/29/18 at 08:46; Status DC Cyclobenzaprine HCl (Flexeril) 10 mg 1X ONCE PO Last administered on 07/29/18at 08:53; Start 07/29/18 at 08:30; Stop 07/29/18 at 08:46; Status DC Fentanyl Citrate (Fentanyl 2ml Vial) 50 mcg 1X ONCE IV Last administered on 07/29/18at 09:15; Start 07/29/18 at 09:00; Stop 07/29/18 at 09:08; Status DC Sodium Chloride 1,000 ml @ 1,000 mls/hr 1X ONCE IV Last administered on at 09:00; Start 07/29/18 at 09:00; Stop 07/29/18 at 09:59; Status DC Fentanyl Citrate (Fentanyl 2ml Vial) 50 mcg 1X ONCE IV Last administered on 07/29/18at 10:14; Start 07/29/18 at 10:00; Stop 07/29/18 at 10:06; Status DC Ketorolac Tromethamine (Toradol 30mg Vial) 30 mg 1X ONCE IV ; Start 07/29/18 at 11:00; Stop 07/29/18 at 11:03; Status DC Ketorolac Tromethamine (Toradol 15mg Vial) 15 mg PRN Q6HRS PRN IV MILD PAIN Last administered on 08/03/18at 08:04; Start 07/29/18 at 11:00; Stop 08/03/18 at 10:59; Status DC Oxycodone/ Acetaminophen (Percocet 5/325) 1 tab PRN Q4HRS PRN PO PAIN Last administered on 08/07/18at 07:33; Start 07/29/18 at 11:00 Nicotine (Nicoderm Cq 21mg) 1 patch PRN DAILY PRN TD SMOKING CESSATION Last administered on 08/06/18at 08:58; Start 07/29/18 at 11:00 Morphine Sulfate (Morphine Sulfate) 2 mg PRN Q2HR PRN IV MODERATE - SEVERE PAIN Last administered on 08/04/18at 03:11; Start 07/29/18 at 11:00 Labetalol HCl (Normodyne Iv Push) 10 mg PRN Q2HR PRN IVP HYPERTENSION, SEE COMMENTS; Start 07/29/18 at 11:15 Midazolam HCl (Versed) 2 mg STK-MED ONCE .ROUTE ; Start 07/29/18 at 12:36; Stop 07/29/18 at 12:37; Status DC Fentanyl Citrate (Fentanyl 2ml Vial) 100 mcg STK-MED ONCE .ROUTE ; Start at 12:37; Stop 07/29/18 at 12:38; Status DC Flumazenil (Romazicon) 0.5 mg STK-MED ONCE IV ; Start 07/29/18 at 12:37; Stop 07/29/18 at 12:38; Status DC Naloxone HCl (Narcan) 0.4 mg STK-MED ONCE .ROUTE ; Start 07/29/18 at 12:37; Stop 07/29/18 at 12:38; Status DC Lidocaine/Sodium Bicarbonate (Buffered Lidocaine 1%) 3 ml STK-MED ONCE .ROUTE ; Start 07/29/18 at 12:39; Stop 07/29/18 at 12:40; Status DC Fentanyl Citrate (Fentanyl 2ml Vial) 50 mcg 1X ONCE IV Last administered on 07/29/18at 13:15; Start 07/29/18 at 13:15; Stop 07/29/18 at 13:24; Status DC Lidocaine/Sodium Bicarbonate (Buffered Lidocaine 1%) 9 ml 1X ONCE IJ Last administered on 07/29/18at 13:19; Start 07/29/18 at 13:30; Stop 07/29/18 at 13:31; Status DC Sennosides (Senna) 17.2 mg 1X ONCE PO Last administered on 08/01/18at 17:20; Start 08/01/18 at 17:30; Stop 08/01/18 at 17:31; Status DC Polyethylene Glycol (miraLAX PACKET) 17 gm 1X ONCE PO Last administered on 03/11at 17:20; Start 08/01/18 at 17:30; Stop 08/01/18 at 17:31; Status DC Lubiprostone (Amitiza) 8 mcg BIDWMEALS PO Last administered on 08/07/18at 07:34 ; Start 08/02/18 at 17:00 Acetaminophen (Tylenol) 650 mg PRN Q6HRS PRN PO headache Last administered on at 23:19; Start 08/02/18 at 11:00 Lidocaine/Sodium Bicarbonate (Buffered Lidocaine 1%) 3 ml STK-MED ONCE .ROUTE ; Start 08/02/18 at 14:23; Stop 08/02/18 at 14:24; Status DC Midazolam HCl (Versed) 2 mg STK-MED ONCE .ROUTE ; Start 08/02/18 at 14:43; Stop 08/02/18 at 14:44; Status DC Fentanyl Citrate (Fentanyl 2ml Vial) 100 mcg STK-MED ONCE .ROUTE ; Start at 14:43; Stop 08/02/18 at 14:44; Status DC Lidocaine/Sodium Bicarbonate (Buffered Lidocaine 1%) 3 ml 1X ONCE IJ Last administered on 08/02/18at 15:09; Start 08/02/18 at 15:15; Stop 08/02/18 at 15:16 ; Status DC Midazolam HCl (Versed) 2 mg 1X ONCE IV Last administered on 08/02/18 15:09; Start 08/02/18 at 15:15; Stop 08/02/18 at 15:16; Status DC Fentanyl Citrate (Fentanyl 2ml Vial) 100 mcg 1X ONCE IV Last administered on 15:09; Start 08/02/18 at 15:15; Stop 08/02/18 at 15:16; Status DC Enoxaparin Sodium (Lovenox 40mg Syringe) 40 mg Q24H SQ Last administered on at 16:49; Start 08/03/18 at 16:00 Diazepam (Valium) 2 mg 1X ONCE PO Last administered on 08/04/18at 14:22; Start 08/04/18 at 14:15; Stop 08/04/18 at 14:16; Status DC Diazepam (Valium) 2 mg PRN Q8HRS PRN PO ANXIETY Last administered on 08/04/18 21:09; Start 08/04/18 at 14:15 Polyethylene Glycol (miraLAX PACKET) 17 gm PRN BID PRN PO CONSTIPATION; Start 08/05/18 at 13:00 Senna/Docusate Sodium (Senna Plus) 2 tab PRN BID PRN PO CONSTIPATION, 2ND CHOICE Last administered on 08/05/18at 13:47; Start 08/05/18 at 13:00 Lorazepam (Ativan) 0.5 mg PRN QHS PRN PO ANXIETY / AGITATION; Start 08/05/18 at 18:30 Zolpidem Tartrate (Ambien) 5 mg PRN QHS PRN PO INSOMNIA; Start 08/05/18 at 18: 30 Active Scripts Active Reported Ibuprofen 400 Mg Tablet 400 Mg PO PRN Q6HRS PRN Vitals/I & O Vital Sign - Last 24 Hours 08/06/18 08/06/18 08/06/18 08/06/18 09:01 11:00 14:43 15:00 Temp 97.7 98.0 97.7 98.0 Pulse 81 93 Resp 18 18 B/P (MAP) 105/56 (72) 100/56 (71) Pulse Ox 98 91 O2 Delivery Room Air Room Air Room Air Room Air 08/06/18 08/06/18 08/06/18 08/06/18 19:25 20:08 21:28 22:28 Temp 98.4 98.4 Pulse 90 Resp 20 B/P (MAP) 108/63 (78) Pulse Ox 98 O2 Delivery Room Air Room Air Room Air Nasal Cannula 08/06/18 08/07/18 08/07/18 08/07/18 23:15 03:15 07:00 07:33 Temp 98.2 98.3 98.2 98.2 98.3 98.2 Pulse 71 71 74 Resp 20 18 18 B/P (MAP) 105/57 (73) 107/59 (75) 104/63 (77) Pulse Ox 98 98 98 O2 Delivery Room Air Room Air Room Air Room Air Intake and Output 08/06/18 08/06/18 08/07/18 14:59 22:59 06:59 Intake Total 480 ml 480 ml Output Total 500 ml 200 ml 550 ml Balance -20 ml -200 ml -70 ml Nutrition Consultation Dietary Evaluation: Recommendations by RD: Increase Calorie Intake, Protein supplementation Comments: REC continue w/regular diet, honor food preferences, and provide snacks as requested REC continue w/Ensure (vanilla) TID Expected Outcomes/Goals: PO intake to meet >75% est needs - met, goal ongoing Malnutrition Findings: Food and Nutrition Intake (Mod: <75% est energy req 7days Weight Status: Appropriate YEE CHANEL MD Aug 07, 2018 08:08
--- NOTE | 2018-08-07 09:17 | RAD ---
Portable chest, 08/07/2018: HISTORY: Left chest tube, follow-up pneumothorax Comparison is made to yesterday's study. The left pigtail pleural drain is unchanged in position. There is scarring over the pulmonary apices. No significant pneumothorax is delineated. The heart size is normal. No pulmonary infiltrate or pleural fluid is seen. IMPRESSION: No evidence of recurrent pneumothorax. Electronically signed by: Lito Archibald MD (08/07/2018 9:14 AM) [facility]
[2018-08-07 11:00] VITALS: BP 106/59
[2018-08-07] MEDS ORDERED: OXYC1TAB15 PO (11:23)
--- NOTE | 2018-08-07 11:23 | PDOC ---
PULMONARY PROGRESS NOTES Subjective no sob, no cough, Vitals Vital Signs Date Time Temp Pulse Resp B/P (MAP) Pulse Ox O2 Delivery O2 Flow Rate FiO2 08/07/18 11:00 98.1 82 18 106/59 (75) 98 Room Air 98.1 ROS: No Nausea, No Abdominal Pain General: Alert, No acute distress HEENT: Other (nc at perrl ) Lungs: Other (decrease bs, l ct) Cardiovascular: S1, S2 Abdomen: Soft, Non-tender Neuro Exam: Alert, Oriented Extremities: No Edema Skin: Warm Medications Active Scripts Medications Dose Route/Sig Max Daily Dose Days Date Category Ibuprofen 400 Mg Tablet 400 Mg PO PRN Q6HRS PRN 07/29/18 Reported Comments reviewed cxr 08/07 no definite ptx Impression . 1. Spontaneous left-sided pneumothorax in a patient who was a smoker and that is the likely risk factor. One should rule out alpha-1 antitrypsin deficiency as an outpatient. no air leak today 2. History of tobaccoism. Plan . 1. cxr reviewed, ptx not well seen 2. s/p clamp ct [address] reviewed 4. Outpatient alpha 1 antitrypsin level. Not available in-house. 5. P.r.n. bronchodilators. 6. Pain control. 7. lovenox for dvt prophylaxis Discussed with RN/ PT chest tube removed/ dc home today ALESIA HERNANDEZ MD Aug 07, 2018 11:23
--- NOTE | 2018-08-07 11:49 | PDOC3 ---
Discharge Summary Visit Information Date of Admission: Jul 29, 2018 Date of Discharge: Aug 07, 2018 Admitting Diagnosis: Spontaneous pneumothorax Final Diagnosis Problems Medical Problems: (1) Left-sided chest pain Status: Acute (2) Spontaneous pneumothorax Status: Acute Brief Hospital Course Allergies Allergies Coded Allergies Type Severity Reaction Last Updated Verified No Known Drug Allergies 07/29/18 No Vital Signs Vital Signs Date Time Temp Pulse Resp B/P (MAP) Pulse Ox O2 Delivery O2 Flow Rate FiO2 08/07/18 11:00 98.1 82 18 106/59 (75) 98 Room Air 98.1 Brief Hospital Course The patient is a 37-year-old who has been a smoker, half pack per day. She presented to the hospital with sudden onset of left-sided chest pain and some shortness of breath. She was seen in the Emergency Room where a large pneumothorax was seen on the left side. She underwent smaller chest tube placement with Heimlich valve. The chest x-ray shows improved in left lung expansion, but it was still showing 30% pneumothorax. The patient states this is the first time ever that she had the pneumothorax. She does not have any history of substance abuse. She was not doing any exertion. Was seen by general surgery for CT and pulmonology as well. Over the course of the next 4 days she had a number of complications with continued air leak, requiring significant suction and decision was made to consult IR for CT replacement after which she still required significant suction for 3 days, but was able to downgrade to clamping trial on 08/07/18 after which she did well. Sent home with smoking cessation instructions and pain medication. Greater than 30 minutes spent on discharge. 1. Spontaneous left-sided pneumothorax in a patient who was a smoker and that is the likely risk factor. One should rule out alpha-1 antitrypsin deficiency as an outpatient. Chest tube out 2. History of tobaccoism. Plan 1. cxr reviewed, ptx not well seen 2. s/p clamp ct [address] reviewed 4. Outpatient alpha 1 antitrypsin level. Not available in-house. 5. P.r.n. bronchodilators. 6. Pain control. 7. lovenox for dvt prophylaxis Discussed with RN/ PT chest tube removed/ dc home today Discharge Information Condition at Discharge: Improved Follow Up: Weeks (2) Disposition/Orders: D/C to Home Scheduled PRN Ibuprofen (Ibuprofen) 400 Mg Tablet, 400 MG PO PRN Q6HRS PRN for INFLAMMATION, ( Reported) Entered as Reported by: ARI MIGUEL on 07/29/181928 Last Action: New Order on 07/29/181928 by ARI MIGUEL Oxycodone/Apap 5-325 (Percocet 5-325 Mg Tablet ) 1 Each Tablet, 1 TAB PO PRN Q4HRS PRN for PAIN for 6 Days, #18 Prescribed by: YEE CHANEL MD on 08/07/18 1123 YEE CHANEL MD Aug 07, 2018 11:49
[2018-08-07 15:00] VITALS: BP 102/63
[2018-08-07] MEDS: ENOXAPARIN 40 MG/0.4 ML SYRINGE. SQ SCH (16:00)
--- NOTE | 2018-08-07 17:40 | NUR ---
Discharge Note: KATERYNA HUA Discharge instructions and discharge home medications reviewed with Patient and a copy given. All questions have been answered and understanding verbalized. The following instructions and handouts were given: CP, Pneumothorax Discontinued lines and drains: Peripheral IV intact. Patient discharged to Home or Self Care with Family Member via Wheelchair
== END 2018-08-07 17:40 | disposition home or self-care (01) | DRG 201 ==
LOC: ER 08:13 → 2 NORTH 09:02
PROVIDERS: ADMIT Internal Medicine; ATTEND Internal Medicine
PROC: 0W9B30Z Drainage of Left Pleural Cavity with Drainage Device, Percutaneous Approach (ICD-10-PCS; principal; 2018-07-31)
PROC: 0WPBX0Z Removal of Drainage Device from Left Pleural Cavity, External Approach (ICD-10-PCS; 2018-07-31)
PROC: 0W9B30Z Drainage of Left Pleural Cavity with Drainage Device, Percutaneous Approach (ICD-10-PCS; 2018-08-02)
PROC: 0WPBX0Z Removal of Drainage Device from Left Pleural Cavity, External Approach (ICD-10-PCS; 2018-08-02)
DX: J93.83 Other pneumothorax (principal); J93.82 Other air leak; F17.210 Nicotine dependence, cigarettes, uncomplicated; F41.9 Anxiety disorder, unspecified; J44.9 Chronic obstructive pulmonary disease, unspecified; K59.00 Constipation, unspecified; E88.01 Alpha-1-antitrypsin deficiency; R93.89 Abnormal findings on diagnostic imaging of other specified body structures; Z82.49 Family history of ischemic heart disease and other diseases of the circulatory system; Z71.6 Tobacco abuse counseling; Z79.899 Other long term (current) drug therapy
CPT/HCPCS: 32557; 36415; 71045; 71046; 71250; 80053; 83690; 83735; 83880; 84484; 85025; 85379; 93005; 96361; 96374; 96375; 96376; A4215; C1729; J1650; J1885; J2250; J2270; J3010; J7030; 99285-25